=== PATIENT | male | born 1960 | race Caucasian/White ===

== ENCOUNTER 2016-06-19 17:14 | Emergency (ER) | payer BC, MEDICAID ==
[~2016-06-19] VITALS: Ht 182.9 cm; Wt 117.9 kg
[~2016-06-19 17:14] MED LIST: ASP81TEC PO; CANA100T PO; CEFD300C3 PO; CEFT1FRO2 IV; CIPR250T3 PO; CLAR-19; CLIN300C3 PO; DAPT500V2 IV; DOXY-182 PO; DOXY100T19 PO; DXCC100CRX PO; FURO-125 PO; FURO20TA4 PO; GLIM4TAB PO; GLIM4TAB56 PO; HUM100VI SQ; HUM100VI15 SQ; HUM100VI4 SC; HUM100VI6 SQ; HYDR-3583 PO; HYDR-3812 PO; IBUP-1773 PO; INSU100I11 SQ; INSU300I SQ; K DUR PO; LISI10TA PO; LISI10TA2 PO; LISI20TA2 PO; LISI5TAB PO; METF-380 PO; METF1000 PO; METO25TA2 PO; METR500T21 PO; SIMV40TA4 PO; SULF-222 PO; SULF1TAB38 PO; TRAM50TA2 PO; VANC1.5P9 IV
--- OUTSIDE RECORDS SUMMARY | 2016-06-19 17:19 | XMS REPORT | Continuity of Care Document ---
Author Author [facility] Organization [facility] Address Unknown Phone Unavailable Care Team Providers Care Wire Web Worker Name Role Phone OSITO YOUNG DO PCP Insurance Providers Payer Name Policy Number Subscriber Name Relationship [facility] [id number] Osito Ahn 17 Self / Same As Patient Advance Directives Directive Response Recorded Date/Time Advance Directives No 05/06/16 9:43pm Health Care Power of Dietary Director No 05/06/16 9:43pm Organ Donor No 05/06/16 [...] - 99.5) 05/08/2016 12:00pm Temperature (Calculated Celsius) 36.23054 degrees C (36.4 - 37.5) 05/08/2016 12:00pm [...] 3.00 inches 05/06/2016 9:47pm Height (Calculated Centimeters) 190.076443 cm 05/06/2016 9:47pm Weight (Pounds) 237 pounds 05/06/2016 9:47pm Weight (Ounces) 0.0 oz 05/06/2016 9:47pm Weight (Calculated Grams) 367308.39 gm 05/06/2016 9:47pm Weight (Calculated Kilograms) 107.284010 kilograms 05/06/2016 9:47pm Calculated BMI 29.6 05/06/2016 [...] 04/24/2016 3:02pm 04/29/2016 10:02am STAPH, COAG NEG (MINESWEEPING OFFICER) 04/24/2016 3:02pm 04/29/2016 10:02am Anaerobic Culture Tissue, Toe No anaerobes isolated 05/01/2016 4:00pm 05/04 9:42am Wound Culture Tissue, Toe PROTEUS MIRABILIS 05/01/2016 4:00pm 05/03/2016 8: 57am STREP AGALACTIAE GROUP B 05/01/2016 4:00pm 05/03/2016 8:57am Pending Microbiology Results Procedure Source Collection Date/Time Procedures No known history of procedures. Encounters Encounter Location Arrival/Admit Date Discharge/Depart Date Attending Provider Discharged Inpatient [facility] 05/06/16 5:37pm 1:45pm LUIS CHUNG MD Registered Recurring [facility] 05/01/16 2:26pm AMANDA LOREDO APRN Registered Clinic [facility] 04/24/16 3:31pm OSITO YOUNG DO Recent Diagnosis Diabetes mellitus Osteomyelitis
[2016-06-19 17:28] LABS: BASOPHILS # (AUTO) 0.1 10^3/uL (0.0-0.1); BASOPHILS % (AUTO) 1 % (0-10); EOSINOPHILS # (AUTO) 0.1 10^3/uL (0.0-0.3); EOSINOPHILS % (AUTO) 2 % (0-10); LYMPHOCYTES # (AUTO) 1.4 X 10^3 (1.0-4.0); LYMPHOCYTES % (AUTO) 18 % (12-44); MEAN CORPUSCULAR HEMOGLOBIN 29 PG (25-34); MEAN CORPUSCULAR HGB CONC 33 G/DL (32-36); MEAN CORPUSCULAR VOLUME 87 FL (80-99); MEAN PLATELET VOLUME 9.3 FL (7.4-10.4); MONOCYTES # (AUTO) 0.8 X 10^3 (0.0-1.0); MONOCYTES % (AUTO) 10 % (0-12); NEUTROPHILS # (AUTO) 5.3 X 10^3 (1.8-7.8); NEUTROPHILS % (AUTO) 70 % (42-75); PLATELET COUNT 264 10^3/uL (130-400); RED CELL DISTRIBUTION WIDTH 13.7 % (10.0-14.5); WHITE BLOOD COUNT 7.6 10^3/uL (4.3-11.0)
--- NOTE | 2016-06-19 17:30 | ED Respiratory ---
General Chief Complaint: Respiratory Problems Stated Complaint: SOA Nursing Triage Note: PT CO OF SOA, PT STATES DID NOT SLEEP GOOD LAST PM, PT HAS PICC LINE IN L AC FOR IV THERAPY FOR INFECTION IN L FOOT Source: patient, family Exam Limitations: no limitations History of Present Illness Time seen by provider: 17:18 Initial Comments Patient presents to the ED with c/o SOA which has progressively gotten worse this evening. Patient was seen as an outpatient earlier today at [facility] for IV antibiotics for cellulitis of the foot. Patient denies cough, congestion, chest pain, fever, abd pain, N/V/D. Patient recently underwent echocardiogram on 06/12 with findings of LVH 40-45 percent, mild diastolic dysfunction, moderate pulmonary hypertension, and a dilated IVC suggestive of increased right atrial pressure. Lexiscan stress test was performed at [place] in [place] with nonspecific ST-T changes. Patient is seeing Dr. Cheng at [place]. Timing/Duration: getting worse, other (chronic shortness of air, worsening yesterday) Prior Episodes/Possible Cause: frequent episodes Modifying Factors: Worse With Other (denies modifying factors) Allergies and Home Medications Allergies Coded Allergies: doxycycline (Verified Allergy, Severe, RASH/SWELLING, 06/12/16) Home Medications #60 10 PO DAILY Prescribed by: SOLEDAD MULLEN on 06/13/16 1118 Aspirin 81 Mg Tabec 81 MG PO DAILY (Reported) Ceftriaxone Na/Dextrose,Iso 1 Gm/50 Ml Froz.piggy 56Days 1 GM IV DAILY Prescribed by: AMARILYS AMBROSIO on 05/17/16 1040 Daptomycin 500 Mg Vial #56 600 MG IV DAILY Prescribed by: AMARILYS AMBROSIO on 05/17/16 1142 Furosemide 20 Mg Tablet #30 20 MG PO DAILY Prescribed by: SOLEDAD MULLEN on 06/13/16 1118 Glimepiride 4 Mg Tablet 8 MG PO DAILY (Reported) TAKES 2 (4MG) TABLETS Insulin Glargine,Hum.rec.anlog 300 Unit/1 Ml Insuln.pen 30Days 40 UNIT SQ HS Prescribed by: ALEX CHERRY on 06/13/16 1308 Insulin Glulisine 100 Unit/1 Ml Insuln.pen 30Days 15 UNIT SQ AC Prescribed by: ALEX CHERRY on 06/13/16 1308 Lisinopril 10 Mg Tablet 10 MG PO DAILY@1700 (Reported) Metformin HCl 1,000 Mg Tablet 1,000 MG PO BIDPC (Reported) Constitutional: No chills, No diaphoresis, No dizziness, No fever, No malaise, No weakness EENTM: no symptoms reported Respiratory: No cough, No dyspnea on exertion, No hemoptysis, No orthopnea, No phlegm, short of breath (constant)No stridor, wheezing Cardiovascular: see HPINo chest pain, edema (chronic edema) Hx of InterventionNo palpitations, No syncope Gastrointestinal: no symptoms reported Genitourinary: no symptoms reported Musculoskeletal: no symptoms reported Skin: no symptoms reported Psychiatric/Neurological: No Symptoms Reported All Other Systems Reviewed Negative Unless Noted: Yes (Negative excepted noted.) Past Efwitey-Uuzqsr-Lvsrfg Hx Patient Social History Alcohol Use: Denies Use Recreational Drug Use: No Smoking Status: Never a Smoker Recent Foreign Travel: No Contact w/Someone Who Travel: No Recent Infectious Disease Expo: No Recent Hopitalizations: Yes (WOUND CARE, [facility]) Physical Abuse Screen: No Sexual Abuse: No Immunizations Up To Date Tetanus Booster (TDap): Less than 5yrs Date of Pneumonia Vaccine: Dec 17, 2012 Date of Influenza Vaccine: May 05, 2016 Seasonal Allergies Seasonal Allergies: No Surgeries HX Surgeries: Yes (SKIN GRAFT TO RIGHT LEG FOLLOWING RILEY YEARS AGO) Surgeries: CABG Respiratory Hx Respiratory Disorders: No Cardiovascular Hx Cardiac Disorders: Yes (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, partial amputation left foot) Cardiac Disorders: Coronary Artery Disease, High Cholesterol, Hypertension Neurological Hx Neurological Disorders: Yes Neurological Disorders: Neuropathy Reproductive System Hx Reproductive Disorders: No Sexually Transmitted Disease: No HIV/AIDS: No Genitourinary Hx Genitourinary Disorders: Yes Genitourinary Disorders: Kidney Stones Gastrointestinal Hx Gastrointestinal Disorders: No Musculoskeletal Hx Musculoskeletal Disorders: Yes (OSTEOMYELITIS LEFT GREAT TOE) Endocrine Hx Endocrine Disorders: Yes Endocrine Disorders: Diabetes, Insulin dep HEENT HX ENT Disorders: No Loss of Vision: Denies Hearing Impairment: Denies Cancer Hx Cancer: No Psychosocial Hx Psychiatric Problems: No Integumentary HX Skin/Integumentary Disorder: Yes Skin/Integumentary Disorders: Recent Skin Changes Blood Transfusions Hx Blood Disorders: No Adverse Reaction to a Blood Tr: No Reviewed Nursing Assessment Reviewed/Agree w Nursing PMH: Yes Family Medical History Significant Family History: Heart Disease, Hypertension Family Medial History: CONGESTIVE HEARTFAILURE 19 FATHER Physical Exam Vital Signs Capillary Refill : Less Than 3 Seconds General Appearance: WD/WN no apparent distress HEENT: PERRL/EOMI pharynx normal Neck: non-tender supple normal inspection Respiratory: chest non-tender lungs clear normal breath sounds no respiratory distress Cardiovascular: normal peripheral pulses regular rate, rhythm no murmur Gastrointestinal: normal bowel sounds non tender softNo distended Extremities: no calf tenderness normal capillary refill pedal edema (2+ bilaterally) Neurologic/Psychiatric: alert normal mood/affect oriented x 3 Skin: normal color warm/dry Progress/Results/Core Measures Results/Orders Lab Results Laboratory Tests Test 06/19/16 17:20 Range/Units Alanine Aminotransferase (ALT/SGPT) 24 0-55 U/L Albumin 4.0 3.2-4.5 G/DL Alkaline Phosphatase 61 40-136 U/L Anion Gap 11 5-14 MMOL/L Aspartate Amino Transf (AST/SGOT) 20 5-34 U/L B-Type Natriuretic Peptide 355.3 H <100.0 PG/ML BUN/Creatinine Ratio 21 Basophils # (Auto) 0.1 0.0-0.1 10^3/uL Basophils (%) (Auto) 1 0-10 % Blood Urea Nitrogen 23 H 7-18 MG/DL C-Reactive Protein High Sensitivity 0.29 0.00-0.50 MG/DL Calcium Level 9.0 8.5-10.1 MG/DL Carbon Dioxide Level 26 21-32 MMOL/L Chloride Level 102 98-107 MMOL/L Creatinine 1.10 0.60-1.30 MG/DL Eosinophils # (Auto) 0.1 0.0-0.3 10^3/uL Eosinophils (%) (Auto) 2 0-10 % Estimat Glomerular Filtration Rate > 60 Glucose Level 106 H 70-105 MG/DL Hematocrit 34 L 40-54 % Hemoglobin 11.3 L 13.3-17.7 G/DL Lymphocytes # (Auto) 1.4 1.0-4.0 X 10^3 Lymphocytes (%) (Auto) 18 12-44 % Magnesium Level 2.0 1.8-2.4 MG/DL Mean Corpuscular Hemoglobin 29 25-34 PG Mean Corpuscular Hemoglobin Concent 33 32-36 G/DL Mean Corpuscular Volume 87 80-99 FL Mean Platelet Volume 9.3 7.4-10.4 FL Monocytes # (Auto) 0.8 0.0-1.0 X 10^3 Monocytes (%) (Auto) 10 0-12 % Neutrophils # (Auto) 5.3 1.8-7.8 X 10^3 Neutrophils (%) (Auto) 70 42-75 % Platelet Count 264 130-400 10^3/uL Potassium Level 4.0 3.6-5.0 MMOL/L Red Blood Count 3.90 L 4.35-5.85 10^6/uL Red Cell Distribution Width 13.7 10.0-14.5 % Sodium Level 139 135-145 MMOL/L Total Bilirubin 0.5 0.1-1.0 MG/DL Total Protein 6.8 6.4-8.2 G/DL Troponin I < 0.30 <0.30 NG/ML White Blood Count 7.6 4.3-11.0 10^3/uL My Orders Orders-DIONNE BEDOLLA Albuterol/Ipra Inhalation Soln (Duoneb I (06/19/16 18:45) Furosemide Injection (Lasix Injection) (06/19/16 18:33) Svn Sm Volume Nebulizer Rt-Rfs (06/19/16 18:33) Iv Infusion <= First Hr Ed (06/19/16 ) Vital Signs/I&O Blood Pressure Mean: 102 ECG Initial ECG Impression Date: Jun 19, 2016 Initial ECG Impression Time: 17:23 Initial ECG Rate: 84 Initial ECG Rhythm: Normal Sinus Initial ECG Comparisson: Unchanged Comment sinus rhythm. No STEMI or arrhythmia noted. ECG reviewed and discussed with Dr. Jorge Lopez. Diagnostic Imaging Diagonstic Imaging: Xray Plain Films/CT/US/NM/MRI: chest Comments FINDINGS: Two views of the chest are obtained. Right PICC line is stable in position. Postoperative changes are again seen in the mediastinum and left hilum. Heart size is upper limits of normal for technique. Heart size and pulmonary vasculature appear stable. There may be trace effusions bilaterally. There is some increase in the interstitial markings throughout both lungs which appears improved from the prior study. No new focal pneumonia is suspected. IMPRESSION: Persistent mild interstitial changes throughout both lungs which appear slightly improved from the prior study. There may be trace bilateral pleural effusions. No significant new abnormality is seen when compared to the recent prior exam. Dictated by: Dictated on workstation # [id number] Reviewed: Reviewed by Me (radiology report reviewed by me) Departure Communication Progress Notes all laboratory and diagnostic findings discussed with the patient. Plan for discharge to home with increasing evening Lasix to 40 mg by mouth for 3 days followed by resuming usual dose. Patient instructed to follow-up with Dr. Cheng and Dr. Young for a recheck. He is to call for appointment time. Return precautions were discussed with the patient as described in the discharge instructions of this report. Patient voices understanding and agrees with the treatment plan. Patient case discussed with Dr. Lopez, he agrees with the plan of care. Impression Impression: Primary Impression: Chronic congestive heart failure Qualified Code: I50.9 - Heart failure, unspecified Disposition: HOME, SELF-CARE Condition: Improved Departure-Patient Inst. Decision time for Depature: 18:57 Referrals: VITO YOUNG DO (PCP/Family) Primary Care Physician Patient Instructions: CHF Add. Discharge Instructions: All discharge instructions reviewed with patient and/or family. Voiced understanding. Increase Lasix to 40 mg by mouth in the evening for 3 days, then resume usual dosing. Continue all other current meds. Elevate the lower extremities. Follow-up with Dr. Cheng and your family physician for recheck this week. Return to the emergency department for worsened shortness of air, chest pain, dizziness, fever, vomiting, abdominal pain, or any other concerns. DIONNE BEDOLLA Jun 19, 2016 17:30
[2016-06-19 17:47] LABS: ALANINE AMINOTRANSFERASE 24 U/L (0-55); ANION GAP 11 MMOL/L (5-14); ASPARTATE AMINO TRANSFERASE 20 U/L (5-34); BILIRUBIN,TOTAL 0.5 MG/DL (0.1-1.0); BLOOD UREA NITROGEN 23 MG/DL (7-18); BUN/CREATININE RATIO 21; CARBON DIOXIDE 26 MMOL/L (21-32); CHLORIDE 102 MMOL/L (98-107); GFR ESTIMATED > 60; GLUCOSE 106 MG/DL (70-105); SODIUM 139 MMOL/L (135-145); TOTAL PROTEIN 6.8 G/DL (6.4-8.2); hs C REACTIVE PROTEIN 0.29 MG/DL (0.00-0.50)
[2016-06-19 17:53] LABS: TROPONIN I < 0.30 NG/ML (<0.30)
--- NOTE | 2016-06-19 18:06 | Diagnostic Imaging Report ---
INDICATION: Shortness of breath. COMPARISON: 06/16/2016. FINDINGS: Two views of the chest are obtained. Right PICC line is stable in position. Postoperative changes are again seen in the mediastinum and left hilum. Heart size is upper limits of normal for technique. Heart size and pulmonary vasculature appear stable. There may be trace effusions bilaterally. There is some increase in the interstitial markings throughout both lungs which appears improved from the prior study. No new focal pneumonia is suspected. IMPRESSION: Persistent mild interstitial changes throughout both lungs which appear slightly improved from the prior study. There may be trace bilateral pleural effusions. No significant new abnormality is seen when compared to the recent prior exam. Dictated by: Dictated on workstation # [id number]
[2016-06-19] MEDS ORDERED: FUROSEMIDE 40 MG/4 ML INJ (LASIX) IV STA (18:33)
[2016-06-19] MEDS ORDERED: RT-ALBUTEROL/IPRATROPIUM 3 ML (DUONEB) VIAL INH ONE (18:45)
[2016-06-19 19:47] VITALS: BP 150/78
== END 2016-06-19 19:47 | disposition home or self-care (01) ==
LOC: EDUNIT# 17:14 → ER 17:15
DX: I50.9 Heart failure, unspecified (principal); I10 Essential (primary) hypertension; E11.9 Type 2 diabetes mellitus without complications; Z79.84 Long term (current) use of oral hypoglycemic drugs; Z79.4 Long term (current) use of insulin; Z79.899 Other long term (current) drug therapy; Z95.1 Presence of aortocoronary bypass graft
CPT/HCPCS: 36415; 71020; 80053; 83735; 83880; 84484; 85025; 86141; 93005; 93041; 94640; 96365

== ENCOUNTER 2016-07-03 11:47 | Emergency (ER) | payer BC, MEDICAID ==
[~2016-07-03] VITALS: Ht 167.6 cm; Wt 104.3 kg
[2016-07-03] MEDS ORDERED: DEXTROSE 50% 50 ML (IMS) SYR ONE (11:50)
--- OUTSIDE RECORDS SUMMARY | 2016-07-03 11:51 | XMS REPORT | Continuity of Care Document ---
Author Author [facility] Organization [facility] Address Unknown Phone Unavailable Care Team Providers Care Restorative Care Technician Name Role Phone OSITO YOUNG DO PCP Insurance Providers Payer Name Policy Number Subscriber Name Relationship [facility] [id number] Osito Ahn 17 Self / Same As Patient Advance Directives Directive Response Recorded Date/Time Advance Directives No 05/06/16 9:43pm Health Care Power of Ship Laborer No 05/06/16 9:43pm Organ Donor No 05/06/16 [...] - 99.5) 05/08/2016 12:00pm Temperature (Calculated Celsius) 36.07307 degrees C (36.4 - 37.5) 05/08/2016 12:00pm [...] 3.00 inches 05/06/2016 9:47pm Height (Calculated Centimeters) 190.056300 cm 05/06/2016 9:47pm Weight (Pounds) 237 pounds 05/06/2016 9:47pm Weight (Ounces) 0.0 oz 05/06/2016 9:47pm Weight (Calculated Grams) 893178.39 gm 05/06/2016 9:47pm Weight (Calculated Kilograms) 107.300679 kilograms 05/06/2016 9:47pm Calculated BMI 29.6 05/06/2016 [...] 04/24/2016 3:02pm 04/29/2016 10:02am STAPH, COAG NEG (ASSOCIATE MUSIC PROFESSOR) 04/24/2016 3:02pm 04/29/2016 10:02am Anaerobic Culture Tissue, Toe No anaerobes isolated 05/01/2016 4:00pm 05/04 9:42am Wound Culture Tissue, Toe PROTEUS MIRABILIS 05/01/2016 4:00pm 05/03/2016 8: 57am STREP AGALACTIAE GROUP B 05/01/2016 4:00pm 05/03/2016 8:57am Pending Microbiology Results Procedure Source Collection Date/Time Procedures No known history of procedures. Encounters Encounter Location Arrival/Admit Date Discharge/Depart Date Attending Provider Discharged Inpatient [facility] 05/06/16 5:37pm 1:45pm LUIS CHUNG MD Registered Recurring [facility] 05/01/16 2:26pm AMANDA LOREDO APRN Registered Clinic [facility] 04/24/16 3:31pm OSITO YOUNG DO Recent Diagnosis Diabetes mellitus Osteomyelitis
[2016-07-03] MEDS ORDERED: DEXTROSE 50% 50 ML (IMS) SYR IV ONE ×2 (12:00→12:45)
--- NOTE | 2016-07-03 12:49 | ED General ---
General Chief Complaint: Glucose Problems Stated Complaint: LOW BLOOD SUGAR Nursing Triage Note: PT BROUGHT IN BY [facility] AFTER BEING FOUND AT HOME UNRESPONSIVE. PT WAS REPORTEDLY DIAPHORETIC AND CLAMMY AND BLOOD GLUCOSE WAS FOUND TO BE 20. 1 AMP D50 WAS GIVEN IVP PER EMS AND PT BECAME RESPONSIVE. UPON ARRIVAL TO ED, PT IS A&O X 4. HE REPORTS FLU LIKE SYMPTOMS OVER THE LAST COUPLE OF DAYS. BLOOD GLUCOSE CHECKED BY THIS RN AND FOUND TO BE 42. NEERU BILLINGS NOTIFIED. Nursing Sepsis Screen: No Definite Risk Source of Information: Patient, Family (sister) Exam Limitations: No Limitations History of Present Illness Time Seen by Provider: 12:30 Initial Comments Patient presents to the emergency department via [facility] after being found at home unresponsive. Patient was apparently diaphoretic, clammy with a blood sugar of 20. Patient was given 1 amp of D50 with patient becoming unresponsive soon after. Upon arrival to the ED patient was noted to have a blood sugar of 42. Patient and sister report patient has a lengthy history for hypoglycemia. Patient is currently undergoing IV antibiotic therapy for osteomyelitis. Timing/Duration: 1/2 Hour, Other (improving) Modifying Factors: improves with Medication (improved with D50) Allergies and Home Medications Allergies Coded Allergies: doxycycline (Verified Allergy, Severe, RASH/SWELLING, 06/12/16) Home Medications #60 10 PO DAILY Prescribed by: SOLEDAD MULLEN on 06/13/16 1118 Aspirin 81 Mg Tabec 81 MG PO DAILY (Reported) Ceftriaxone Na/Dextrose,Iso 1 Gm/50 Ml Froz.piggy 56Days 1 GM IV DAILY Prescribed by: AMARILYS AMBROSIO on 05/17/16 1040 Daptomycin 500 Mg Vial #56 600 MG IV DAILY Prescribed by: AMARILYS AMBROSIO on 05/17/16 1142 Furosemide 20 Mg Tablet #30 20 MG PO DAILY Prescribed by: SOLEDAD MULLEN on 06/13/16 1118 Glimepiride 4 Mg Tablet 8 MG PO DAILY (Reported) TAKES 2 (4MG) TABLETS Insulin Glargine,Hum.rec.anlog 300 Unit/1 Ml Insuln.pen 30Days 40 UNIT SQ HS Prescribed by: ALEX CHERRY on 06/13/16 1308 Insulin Glulisine 100 Unit/1 Ml Insuln.pen 30Days 15 UNIT SQ AC Prescribed by: ALEX CHERRY on 06/13/16 1308 Lisinopril 10 Mg Tablet 10 MG PO DAILY@1700 (Reported) Metformin HCl 1,000 Mg Tablet 1,000 MG PO BIDPC (Reported) Constitutional: see HPINo chills, diaphoresis (resolved completely prior to arrival)No dizziness, No fever, No malaise, No weakness EENTM: no symptoms reported Respiratory: No cough, No dyspnea on exertion, No orthopnea, No short of breath Cardiovascular: No chest pain, No palpitations Gastrointestinal: no symptoms reported Genitourinary: no symptoms reported Musculoskeletal: no symptoms reported Skin: no symptoms reported Psychiatric/Neurological: See HPIDenies Headache, Denies Numbness, Denies Paresthesia, Denies Seizure, Denies Tingling, Denies Weakness All Other Systems Reviewed Negative Unless Noted: Yes (Negative excepted noted.) Past Ikzozjx-Scudye-Qrcciy Hx Patient Social History Alcohol Use: Denies Use Recreational Drug Use: No Smoking Status: Never a Smoker Recent Foreign Travel: No Contact w/Someone Who Travel: No Recent Infectious Disease Expo: No Recent Hopitalizations: Yes ([facility], [facility]) Physical Abuse Screen: No Sexual Abuse: No Immunizations Up To Date Tetanus Booster (TDap): Less than 5yrs Date of Pneumonia Vaccine: Dec 17, 2012 Date of Influenza Vaccine: May 05, 2016 Seasonal Allergies Seasonal Allergies: No Surgeries HX Surgeries: Yes (SKIN GRAFT TO RIGHT LEG FOLLOWING RILEY YEARS AGO) Surgeries: CABG Respiratory Hx Respiratory Disorders: No Cardiovascular Hx Cardiac Disorders: Yes (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, partial amputation left foot) Cardiac Disorders: Coronary Artery Disease, High Cholesterol, Hypertension Neurological Hx Neurological Disorders: Yes Neurological Disorders: Neuropathy Reproductive System Hx Reproductive Disorders: No Sexually Transmitted Disease: No HIV/AIDS: No Genitourinary Hx Genitourinary Disorders: Yes Genitourinary Disorders: Kidney Stones Gastrointestinal Hx Gastrointestinal Disorders: No Musculoskeletal Hx Musculoskeletal Disorders: Yes (OSTEOMYELITIS LEFT GREAT TOE) Endocrine Hx Endocrine Disorders: Yes Endocrine Disorders: Diabetes, Insulin dep ((with frequent hypoglycemic episodes)) HEENT HX ENT Disorders: No Loss of Vision: Denies Hearing Impairment: Denies Cancer Hx Cancer: No Psychosocial Hx Psychiatric Problems: No Integumentary HX Skin/Integumentary Disorder: Yes Skin/Integumentary Disorders: Recent Skin Changes Blood Transfusions Hx Blood Disorders: No Adverse Reaction to a Blood Tr: No Reviewed Nursing Assessment Reviewed/Agree w Nursing PMH: Yes Family Medical History Significant Family History: Heart Disease, Hypertension Family Medial History: CONGESTIVE HEARTFAILURE 19 FATHER Physical Exam Vital Signs Capillary Refill : Less Than 3 Seconds General Appearance: No Apparent Distress WD/WN HEENT: PERRL/EOMI Pharynx Normal Other (normocephalic, atraumatic) Neck: Full Range of Motion Normal Inspection Non Tender Supple Respiratory: Lungs Clear Normal Breath Sounds No Respiratory Distress Cardiovascular: Regular Rate, Rhythm No Murmur Gastrointestinal: Normal Bowel Sounds Non Tender SoftNo Distended Back: Normal Inspection Extremity: Normal Capillary Refill Non Tender Neurologic/Psychiatric: Alert Oriented x3 No Motor/Sensory Deficits Normal Mood/Affect rock duster II-XII Norm as Tested Skin: Normal Color Warm/Dry Progress/Results/Core Measures Results/Orders Lab Results My Orders Orders-DIONNE BEDOLLA Iv Push Sister [facility] Ed (07/03/16 ) Medications Given in ED Vital Signs/I&O Blood Pressure Mean: 112 Point of Care Testing Finger Stick Blood Glucose: 44 Blood Glucose Action Taken: DR NOTIFIED Departure Communication Progress Notes Patient seen and evaluated. Patient was given 2 doses of D50 in the emergency department with blood sugars rising from 42-44-90 respectively. Patient was given a lunch tray and jesse crackers with peanut butter. Patient reports feeling much better after medications and eating. Patient is alert and oriented 3, no acute distress. Proceed with discharge to home with follow-up as an outpatient with Dr. Mehta. Patient instructed to decrease his regular insulin to 15 units before meals. Patient states he has an appointment tomorrow with Dr. Mehta for recheck of his medications. Patient instructed to keep this appointment. All return precautions were discussed with the patient as described in the discharge instructions of this report. Patient voices understanding and agrees with the treatment plan. Patient case discussed with Dr. Oden, he agrees with the plan of care. Impression Impression: Primary Impression: Hypoglycemia associated with diabetes Disposition: 01 HOME, SELF-CARE Condition: Improved Departure-Patient Inst. Decision time for Depature: 13:25 Referrals: VITO MEHTA DO (PCP/Family) Primary Care Physician Patient Instructions: HYPOGLYCEMIA Add. Discharge Instructions: All discharge instructions reviewed with patient and/or family. Voiced understanding. Decrease regular insulin to 15 units subcutaneous 30 minutes before meals. Continue all other home medications. Monitor blood sugars closely. Follow-up with your primary care physician for recheck tomorrow as previously scheduled. Return to the emergency department for low blood sugar, confusion, headache, dizziness, changes in vision, or any other concerns. DIONNE BEDOLLA Jul 03, 2016 12:49 Hypoglycemia associated with diabetes Disposition: 01 HOME, SELF-CARE Condition: Improved Departure-Patient Inst. Decision time for Depature: 13:25 Referrals: VITO MEHTA DO (PCP/Family) Primary Care Physician Patient Instructions: HYPOGLYCEMIA Add. Discharge Instructions: All discharge instructions reviewed with patient and/or family. Voiced understanding. Decrease regular insulin to 15 units subcutaneous 30 minutes before meals. Continue all other home medications. Monitor blood sugars closely. Follow-up with your primary care physician for recheck tomorrow as previously scheduled. Return to the emergency department for low blood sugar, confusion, headache, dizziness, changes in vision, or any other concerns. DIONNE BEDOLLA Jul 03, 2016 12:49
[2016-07-03 14:09] VITALS: BP 147/95
== END 2016-07-03 14:09 | disposition home or self-care (01) ==
LOC: EDUNIT# 11:47 → ER 11:48
DX: E11.649 Type 2 diabetes mellitus with hypoglycemia without coma (principal); I10 Essential (primary) hypertension; Z79.4 Long term (current) use of insulin; Z79.84 Long term (current) use of oral hypoglycemic drugs; Z79.899 Other long term (current) drug therapy
CPT/HCPCS: 82962; 96374; 96376

== ENCOUNTER 2016-07-10 19:38 | Emergency (ER) | payer BC, MEDICAID ==
[~2016-07-10] VITALS: Ht 167.6 cm; Wt 104.3 kg
--- OUTSIDE RECORDS SUMMARY | 2016-07-10 19:44 | XMS REPORT | Continuity of Care Document ---
Author Author [facility] Organization [facility] Address Unknown Phone Unavailable Care Team Providers Care Saddle Mechanic Name Role Phone OSITO YOUNG DO PCP Insurance Providers Payer Name Policy Number Subscriber Name Relationship [facility] [id number] Osito Ahn 17 Self / Same As Patient Advance Directives Directive Response Recorded Date/Time Advance Directives No 05/06/16 9:43pm Health Care Power of Store Group Manager No 05/06/16 9:43pm Organ Donor No 05/06/16 [...] - 99.5) 05/08/2016 12:00pm Temperature (Calculated Celsius) 36.09864 degrees C (36.4 - 37.5) 05/08/2016 12:00pm [...] 3.00 inches 05/06/2016 9:47pm Height (Calculated Centimeters) 190.229340 cm 05/06/2016 9:47pm Weight (Pounds) 237 pounds 05/06/2016 9:47pm Weight (Ounces) 0.0 oz 05/06/2016 9:47pm Weight (Calculated Grams) 871786.39 gm 05/06/2016 9:47pm Weight (Calculated Kilograms) 107.223450 kilograms 05/06/2016 9:47pm Calculated BMI 29.6 05/06/2016 [...] 04/24/2016 3:02pm 04/29/2016 10:02am STAPH, COAG NEG (ASSISTANT PARALEGAL) 04/24/2016 3:02pm 04/29/2016 10:02am Anaerobic Culture Tissue, Toe No anaerobes isolated 05/01/2016 4:00pm 05/04 9:42am Wound Culture Tissue, Toe PROTEUS MIRABILIS 05/01/2016 4:00pm 05/03/2016 8: 57am STREP AGALACTIAE GROUP B 05/01/2016 4:00pm 05/03/2016 8:57am Pending Microbiology Results Procedure Source Collection Date/Time Procedures No known history of procedures. Encounters Encounter Location Arrival/Admit Date Discharge/Depart Date Attending Provider Discharged Inpatient [facility] 05/06/16 5:37pm 1:45pm LUIS CHUNG MD Registered Recurring [facility] 05/01/16 2:26pm AMANDA LOREDO APRN Registered Clinic [facility] 04/24/16 3:31pm OSITO YOUNG DO Recent Diagnosis Diabetes mellitus Osteomyelitis
[2016-07-10 20:05] LABS: BASOPHILS % (AUTO) 0 % (0-10); EOSINOPHILS # (AUTO) 0.1 10^3/uL (0.0-0.3); EOSINOPHILS % (AUTO) 1 % (0-10); LYMPHOCYTES # (AUTO) 1.6 X 10^3 (1.0-4.0); LYMPHOCYTES % (AUTO) 20 % (12-44); MEAN CORPUSCULAR HEMOGLOBIN 28 PG (25-34); MEAN CORPUSCULAR HGB CONC 32 G/DL (32-36); MEAN CORPUSCULAR VOLUME 86 FL (80-99); MEAN PLATELET VOLUME 9.6 FL (7.4-10.4); MONOCYTES # (AUTO) 0.7 X 10^3 (0.0-1.0); MONOCYTES % (AUTO) 9 % (0-12); NEUTROPHILS # (AUTO) 5.9 X 10^3 (1.8-7.8); NEUTROPHILS % (AUTO) 71 % (42-75); PLATELET COUNT 286 10^3/uL (130-400); RED BLOOD COUNT 3.99 10^6/uL (4.35-5.85); RED CELL DISTRIBUTION WIDTH 14.2 % (10.0-14.5); WHITE BLOOD COUNT 8.4 10^3/uL (4.3-11.0)
--- NOTE | 2016-07-10 20:07 | ED Cardiac General ---
History of Present Illness General Chief Complaint: Cardiac/General Problems Stated Complaint: SOA/RACING HEART Nursing Triage Note: PT C/O PALPITATIONS AND DYSPNEA. HE STATES HE WAS SEEN BY HIS MANAGEMENT PROFESSOR AT [facility] TODAY. Source: patient Exam Limitations: no limitations History of Present Illness Time seen by provider: 19:41 Initial Comments Here with report of shortness of breath and palpitations today. Currently under therapy for osteomyelitis of the left great toe. Has had recent hospitalizations here and at [facility] for heart failure or chest pain concerns. He has had 2 other ER visits for chest pain concerns here as well. His mother reports that he had fluid around his heart that was found at [place] and they had to diurese him. He was also found to have A. fib and is currently on Xarelto which he started today. A. fib appears to be paroxysmal see has history of that in the past as well. Does have echocardiogram from 06/12/16 done here that shows mild mitral valve regurg and mild LV systolic dysfunction. EF is 40-45 percent. Also some mild diastolic dysfunction and moderate pulmonary hypertension noted. Timing/Duration: 4-6 hours, intermittent Severity: moderate Location: central, other (shortness of breath and palpitations) Activities at Onset: activity Prior CP/Workup: cardiac cath, cardiolye scan, echocardiography Modifying Factors: worse with exercise, improves with rest NTG SL SOCIAL SCIENCE TEACHER: Yes ASA po SOCIAL SCIENCE TEACHER: No Associated Systoms: No Chest Pain, No Fever/Chills, No Nausea/Vomiting, Shortness of Air Weakness Allergies and Home Medications Allergies Coded Allergies: doxycycline (Verified Allergy, Severe, RASH/SWELLING, 06/12/16) Home Medications #60 10 PO DAILY Prescribed by: SOLEDAD MULLEN on 06/13/16 1118 Aspirin 81 Mg Tabec 81 MG PO DAILY (Reported) Ceftriaxone Na/Dextrose,Iso 1 Gm/50 Ml Froz.piggy 56Days 1 GM IV DAILY Prescribed by: AMARILYS AMBROSIO on 05/17/16 1040 Daptomycin 500 Mg Vial #56 600 MG IV DAILY Prescribed by: AMARILYS AMBROSIO on 05/17/16 1142 Furosemide 20 Mg Tablet #30 20 MG PO DAILY Prescribed by: SOLEDAD MULLEN on 06/13/16 1118 Glimepiride 4 Mg Tablet 8 MG PO DAILY (Reported) TAKES 2 (4MG) TABLETS Insulin Glargine,Hum.rec.anlog 300 Unit/1 Ml Insuln.pen 30Days 40 UNIT SQ HS Prescribed by: ALEX CHERRY on 06/13/16 1308 Insulin Glulisine 100 Unit/1 Ml Insuln.pen 30Days 15 UNIT SQ AC Prescribed by: ALEX CHERRY on 06/13/16 1308 Lisinopril 10 Mg Tablet 10 MG PO DAILY@1700 (Reported) Metformin HCl 1,000 Mg Tablet 1,000 MG PO BIDPC (Reported) Review of Systems Constitutional: see HPINo chills, No fever EENTM: No Symptoms Reported Respiratory: See HPI SOA With ExertionDenies SOA at Rest Cardiovascular: Denies Chest Pain, Palpitations Gastrointestinal: No Symptoms Reported Genitourinary: No Symptoms Reported Musculoskeletal: no symptoms reported Skin: see HPI Psychiatric/Neurological: Anxiety (related to previous chest pain event) Denies Emotional Problems, Denies Headache, Denies Weakness Endocrine: No Symptoms Reported All Other Systems Reviewed Negative Unless Noted: Yes Past Umstrff-Yhdvbj-Idmbzp Hx Patient Social History Alcohol Use: Denies Use Recreational Drug Use: No Smoking Status: Never a Smoker Recent Foreign Travel: No Contact w/Someone Who Travel: No Recent Infectious Disease Expo: No Recent Hopitalizations: Yes (W[facility] CARE, [place]) Physical Abuse Screen: No Sexual Abuse: No Immunizations Up To Date Tetanus Booster (TDap): Less than 5yrs Date of Pneumonia Vaccine: Dec 17, 2012 Date of Influenza Vaccine: May 05, 2016 Seasonal Allergies Seasonal Allergies: No Surgeries HX Surgeries: Yes (SKIN GRAFT TO RIGHT LEG FOLLOWING RILEY YEARS AGO) Surgeries: CABG Respiratory Hx Respiratory Disorders: No Cardiovascular Hx Cardiac Disorders: Yes (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, partial amputation left foot) Cardiac Disorders: Coronary Artery Disease, High Cholesterol, Hypertension Neurological Hx Neurological Disorders: Yes Neurological Disorders: Neuropathy Reproductive System Hx Reproductive Disorders: No Sexually Transmitted Disease: No HIV/AIDS: No Genitourinary Hx Genitourinary Disorders: Yes Genitourinary Disorders: Kidney Stones Gastrointestinal Hx Gastrointestinal Disorders: No Musculoskeletal Hx Musculoskeletal Disorders: Yes (OSTEOMYELITIS LEFT GREAT TOE) Endocrine Hx Endocrine Disorders: Yes Endocrine Disorders: Diabetes, Insulin dep HEENT HX ENT Disorders: No Loss of Vision: Denies Hearing Impairment: Denies Cancer Hx Cancer: No Psychosocial Hx Psychiatric Problems: No Integumentary HX Skin/Integumentary Disorder: Yes Skin/Integumentary Disorders: Recent Skin Changes Blood Transfusions Hx Blood Disorders: No Adverse Reaction to a Blood Tr: No Reviewed Nursing Assessment Reviewed/Agree w Nursing PMH: Yes Family Medical History Significant Family History: Heart Disease, Hypertension Family Medial History: CONGESTIVE HEARTFAILURE 19 FATHER Physical Exam Vital Signs Vital Sign - Last 12Hours 07/10/16 19:38 Temp 98.6 Pulse 85 Resp 16 B/P 156/97 Pulse Ox 99 O2 Delivery Room Air Capillary Refill : Less Than 3 Seconds General Appearance: No Apparent Distress WD/WN HEENT: PERRL/EOMI Pharynx Normal Neck: Non Tender Supple Respiratory: Lungs Clear Normal Breath Sounds Cardiovascular: Systolic Murmur (greatest in the left lateral chest wall area ) Irregularly Irregular Gastrointestinal: Non Tender Soft Extremity: Normal Range of Motion Non Tender Pedal Edema (1+ edema to the mid tibia bilaterally) Neurologic/Psychiatric: Alert Oriented x3 Skin: Normal Color Warm/Dry Other (boot and dressing on left foot for known left great toe diabetic ulcer.) Progress/Results/Core Measures Results/Orders Lab Results Laboratory Tests Test 07/10/16 19:42 Range/Units Activated Partial Thromboplast Time 38 H 24-35 SEC Alanine Aminotransferase (ALT/SGPT) 36 0-55 U/L Albumin 3.7 3.2-4.5 G/DL Alkaline Phosphatase 65 40-136 U/L Anion Gap 11 5-14 MMOL/L Aspartate Amino Transf (AST/SGOT) 27 5-34 U/L B-Type Natriuretic Peptide 141.2 H <100.0 PG/ML BUN/Creatinine Ratio 19 Basophils # (Auto) 0.0 0.0-0.1 10^3/uL Basophils (%) (Auto) 0 0-10 % Blood Urea Nitrogen 28 H 7-18 MG/DL Calcium Level 9.0 8.5-10.1 MG/DL Carbon Dioxide Level 26 21-32 MMOL/L Chloride Level 102 98-107 MMOL/L Creatinine 1.47 H 0.60-1.30 MG/DL Eosinophils # (Auto) 0.1 0.0-0.3 10^3/uL Eosinophils (%) (Auto) 1 0-10 % Estimat Glomerular Filtration Rate 50 Glucose Level 145 H 70-105 MG/DL Hematocrit 34 L 40-54 % Hemoglobin 11.1 L 13.3-17.7 G/DL INR Comment 2.0 H 0.8-1.4 Lymphocytes # (Auto) 1.6 1.0-4.0 X 10^3 Lymphocytes (%) (Auto) 20 12-44 % Magnesium Level 1.6 L 1.8-2.4 MG/DL Mean Corpuscular Hemoglobin 28 25-34 PG Mean Corpuscular Hemoglobin Concent 32 32-36 G/DL Mean Corpuscular Volume 86 80-99 FL Mean Platelet Volume 9.6 7.4-10.4 FL Monocytes # (Auto) 0.7 0.0-1.0 X 10^3 Monocytes (%) (Auto) 9 0-12 % Myoglobin 55.7 10.0-92.0 NG/ML Neutrophils # (Auto) 5.9 1.8-7.8 X 10^3 Neutrophils (%) (Auto) 71 42-75 % Platelet Count 286 130-400 10^3/uL Potassium Level 4.6 3.6-5.0 MMOL/L Prothrombin Time 22.7 H 12.2-14.7 SEC Red Blood Count 3.99 L 4.35-5.85 10^6/uL Red Cell Distribution Width 14.2 10.0-14.5 % Sodium Level 139 135-145 MMOL/L Total Bilirubin 0.4 0.1-1.0 MG/DL Total Protein 6.4 6.4-8.2 G/DL Troponin I < 0.30 <0.30 NG/ML White Blood Count 8.4 4.3-11.0 10^3/uL My Orders Orders-BEATRICE PETERSON MD Cbc With Automated Diff (07/10/16 19:56) Magnesium (07/10/16 19:56) Chest 1 View, Ap/Pa Only (07/10/16 19:56) Ekg Tracing (07/10/16 19:56) Cardiac Profile 1 (07/10/16 19:56) Comprehensive Metabolic Panel (07/10/16 19:56) Myoglobin Serum (07/10/16 19:56) Protime With Inr (07/10/16 19:56) Partial Thromboplastin Time (07/10/16 19:56) O2 (07/10/16 19:56) Monitor-Rhythm Ecg Trace Only (07/10/16 19:56) Lipid Panel (07/11/16 06:00) Saline Lock/Iv-Start (07/10/16 19:56) BNP (07/10/16 19:56) Lasix 40 Mg Iv (07/10/16 21:14) Vital Signs/I&O Vital Sign - Last 12Hours 07/10/16 19:38 Temp 98.6 Pulse 85 Resp 16 B/P 156/97 Pulse Ox 99 O2 Delivery Room Air Blood Pressure Mean: 116 Progress Note : Progress Note Seen and evaluated. IV, labs, EKG and chest x-ray ordered. Records reviewed from previous visits. Monitor patient. 2109: Overall no significant findings. There is a question of some pulmonary congestion and he does have history of CHF. He recently had reduction of his Lasix to 40 mg from 80 mg. His weight was down approximately 20 pounds below what it is now although his weight now is what he typically is at per the mother. Given the mild edema of the legs and the pulmonary congestion, we will give 40 mg of Lasix IV now. He has a follow-up appointment with Dr. Mehta in the morning. We will defer medication changes to his primary care provider. Patient will see him tomorrow. This was discussed with the mother and the patient who both agree. Patient to also discuss blood thinner agents with Dr. Mehta. Currently on Xarelto which patient is going to have difficulty affording. Otherwise no admission criteria and patient is otherwise doing well. Discharged home with return precautions. Patient verbalize understanding instructions and agreement with plan. ECG Initial ECG Impression Date: Jul 10, 2016 Initial ECG Impression Time: 19:44 Initial ECG Rate: 79 Initial ECG Rhythm: A Fib/Flutter Comment Atrial flutter with rate of 79. Change from previous sinus rhythm of 06/19/16. No evidence of ST elevation CA. Interpreted by me. Departure Impression Impression: Primary Impression: Atrial fibrillation Qualified Code: I48.0 - Paroxysmal atrial fibrillation Additional Impression: CHF (congestive heart failure) Qualified Code: I50.42 - Chronic combined systolic (congestive) and diastolic (congestive) heart failure Disposition: 01 HOME, SELF-CARE Condition: Improved Departure-Patient Inst. Decision time for Depature: 21:19 Referrals: VITO MEHTA DO (PCP/Family) Primary Care Physician Patient Instructions: Atrial Fibrillation (DC), CHF Add. Discharge Instructions: All discharge instructions reviewed with patient and/or family. Voiced understanding. Keep your appointment with Dr. Mehta in the morning. Discussed with him about your Lasix dosing. Also discussed with him about your blood thinner medications due to the cost of the Xarelto. There may be less expensive options for you. Return for worse pain, fever, vomiting, weakness, breathing problems or other concerns as needed. Copy Copies To 1: VITO MEHTA TIMOTHY D MD Jul 10, 2016 20:07
[2016-07-10 20:11] LABS: PROTHROMBIN TIME PATIENT 22.7 SEC (12.2-14.7)
[2016-07-10 20:20] LABS: ALANINE AMINOTRANSFERASE 36 U/L (0-55); ALBUMIN 3.7 G/DL (3.2-4.5); ANION GAP 11 MMOL/L (5-14); ASPARTATE AMINO TRANSFERASE 27 U/L (5-34); BILIRUBIN,TOTAL 0.4 MG/DL (0.1-1.0); BLOOD UREA NITROGEN 28 MG/DL (7-18); BUN/CREATININE RATIO 19; CARBON DIOXIDE 26 MMOL/L (21-32); CHLORIDE 102 MMOL/L (98-107); CREATININE SERUM 1.47 MG/DL (0.60-1.30); GFR ESTIMATED 50; GLUCOSE 145 MG/DL (70-105); MAGNESIUM 1.6 MG/DL (1.8-2.4); POTASSIUM 4.6 MMOL/L (3.6-5.0); SODIUM 139 MMOL/L (135-145); TOTAL PROTEIN 6.4 G/DL (6.4-8.2)
[2016-07-10 20:26] LABS: MYOGLOBIN SERUM 55.7 NG/ML (10.0-92.0)
--- NOTE | 2016-07-10 20:54 | Diagnostic Imaging Report ---
INDICATION: Palpitations, dyspnea. EXAMINATION: Chest 07/10/2016 COMPARISON: 06/19/2016. FINDINGS: There is cardiomegaly and mild pulmonary vascular congestion. Mildly increased markings throughout both lungs noted. No focal consolidations or effusions. No pneumothorax. Right-sided PICC line is stable. There are sternotomy wires and mediastinal clips. IMPRESSION: Suspicion of mild pulmonary edema, correlate with symptoms. When patient is able, PA and lateral views may provide further characterization. Dictated by: Dictated on workstation # [id number]
[2016-07-10] MEDS ORDERED: FUROSEMIDE 40 MG/4 ML INJ (LASIX) IV STA (21:14)
[2016-07-10 21:42] VITALS: BP 146/97
== END 2016-07-10 21:43 | disposition home or self-care (01) ==
LOC: EDUNIT# 19:38 → ER 19:40
DX: I48.0 Paroxysmal atrial fibrillation (principal); I50.9 Heart failure, unspecified; I10 Essential (primary) hypertension; Z79.82 Long term (current) use of aspirin; Z79.01 Long term (current) use of anticoagulants
CPT/HCPCS: 36415; 71010; 80053; 83735; 83874; 83880; 84484; 85025; 85610; 85730; 93005; 93041; 96374

== ENCOUNTER 2016-07-13 12:10 | Outpatient (RCR) | payer BC, MEDICAID ==
--- OUTSIDE RECORDS SUMMARY | 2016-05-18 08:18 | XMS REPORT | Continuity of Care Document ---
Author Author [facility] Organization [facility] Address Unknown Phone Unavailable Care Team Providers Care Machine Finisher Name Role Phone OSITO YOUNG DO PCP Insurance Providers Payer Name Policy Number Subscriber Name Relationship [facility] [id number] Osito Ahn 17 Self / Same As Patient Advance Directives Directive Response Recorded Date/Time Advance Directives No 05/06/16 9:43pm Health Care Power of Agricultural Engineering Technologist No 05/06/16 9:43pm Organ Donor No 05/06/16 9:43pm Resuscitation Status Full Code 05/06/16 9:43pm Chief Complaint and Reason for Visit Chief Complaint OSTEOMYELITIS; CELLULITIS 2 DEG TO DIABETIC ULCER Reason for Visit Diabetes mellitus Osteomyelitis Problems Active Problems Medical Problem Onset Date Status CELLULITIS LEFT ELBOW Unknown Acute Cellulitis Unknown Acute Cellulitis Unknown Acute Diabetes mellitus Unknown Acute Osteomyelitis Unknown Acute Medications Current Home Medications Medication Dose Units Route Directions Days/Qty Instructions Start Date Aspirin 81 Mg 81 Mg Oral Daily 12/14/12 Lisinopril 10 Mg 10 Mg Oral Bedtime 05/07/16 Glimepiride 4 Mg 8 Mg Oral Daily TAKES 2 (4MG) TABLETS 05/07/16 Metformin Hcl 1,000 Mg 1,000 Mg Oral Twice Daily After Meals Insulin Nph Hum/Reg Insulin Hm 100 Unit/1 Ml 70 Unit Sub-Q Twice A Day 05/07/16 Cefdinir (Omnicef) 300 Mg 300 Mg Oral Twice A Day 30 05/08/16 Past Home Medications Medication Directions Ordered Status Metformin Hcl (Glucophage) 1,000 Mg Tablet, 1000 Mg Oral Twice A Day Discontinued Hum Insulin Nph/Reg Insulin Hm 10 Ml Vial, 70 Units Subcutaneously Bid Ac Meals 07/19/10 Discontinued Glimepiride 4 Mg Tablet, 8 Mg Oral Daily 07/19/10 Discontinued Lisinopril 20 Mg Tablet, 20 Mg Oral Daily In Evening 07/19/10 Discontinued Lisinopril 5 Mg Tablet, 5 Mg Oral Every Evening 12/14/12 Discontinued Metoprolol Tartrate (Lopressor) 25 Mg Tablet, 25 Mg Oral Daily 12/14/12 Discontinued Simvastatin 40 Mg Tablet, 40 Mg Oral Bedtime 12/14/12 Discontinued Doxycycline Hyclate 100 Mg Tab, 100 Mg Oral Bid@07,17 12/19/12 Discontinued Doxycycline Hyclate 100 Mg Tablet.dr, 100 Mg Oral Twice A Day 12/23/12 Discontinued Hum Insulin Nph/Reg Insulin Hm 10 Ml Vial, 50 Units Sub-Q Twice A Day Discontinued Lisinopril 10 Mg Tablet, 10 Mg Oral Daily 12/26/12 Discontinued Furosemide (Lasix) 20 Mg Tablet, 1 Each Oral Daily 12/26/12 Discontinued Trimethoprim/Sulfamethoxazole 1 Ea Tablet, 1 Ea Oral Twice A Day 04/10/13 Discontinued Tramadol Hcl 50 Mg Tablet, 50 Mg Oral Every 6 Hours 04/10/13 Discontinued Acetaminophen/Hydrocodone Bitart 1 Tab Tab, 1 Ea Oral Q4hr Prn 04/12/13 Discontinued Trimethoprim/Sulfamethoxazole 1 Ea Tablet, 1 Ea Oral Twice A Day 04/21/13 Discontinued Clarithromycin 500 Mg Tab, 11/30/14 Discontinued Clindamycin Hcl 300 Mg Capsule, 1 Each Oral Give Every 6 Hr On Schedule 11/30 Discontinued Clindamycin Hcl 300 Mg Capsule, 1 Each Oral Four Times Daily 11/30/14 Discontinued Ibuprofen (Motrin) 600 Mg Tablet, 600 Mg Oral Every 6 Hours 11/30/14 Discontinued Glimepiride 4 Mg Tablet, 8 Mg Oral Daily 09/29/15 Discontinued Canagliflozin 100 Mg Tablet, 100 Mg Oral Daily 09/29/15 Discontinued Hydrocodone/Acetaminophen 1 Each Tablet, 1 Each Oral Every 4HRS as needed for Pain 10/05/15 Discontinued Doxycycline Monohydrate 100 Mg Tablet, 100 Mg Oral Twice A Day 05/07/16 Discontinued Ciprofloxacin Hcl 250 Mg Tablet, 250 Mg Oral Twice A Day 05/07/16 Discontinued Social History Social History Problem Response Recorded Date/Time Alcohol Use Denies Use 10/05/2015 8:49am Recreational Drug Use No 10/05/2015 8:49am Recent Foreign Travel No 05/06/2016 9:47pm Recent Infectious Disease Exposure No 05/06/2016 9:47pm Hospitalization with Isolation Denies 05/08/2016 6:19pm Sexually Transmitted Disease No 05/06/2016 9:43pm HIV/AIDS No 05/06/2016 9:43pm Smoking Status Never a Smoker 05/06/2016 9:46pm Recent Hopitalizations Yes 05/06/2016 9:43pm Sexually Transmitted Disease No 05/06/2016 9:43pm Hospitalization with Isolation Denies 05/08/2016 6:19pm Query Response Start Date Stop Date Smoking Status Never a Smoker Hospital Discharge Instructions Patient Instructions Physician Instructions Plan of Care/Instructions/FU: Keep your foot elevated whenever possible. Keep wound clean and dry. Return to wound clinic as scheduled Medications as on the medication list Activity as Tolerated: Yes Goal: Continuing improvement in wound healing. Better control of blood sugars Discharge Diet: ADA Diet Return to [facility] For: Evidence of increasing swelling and redness suggesting infection Care Plan Patient Instructions:: Keep your foot elevated whenever possible. Keep wound clean and dry.Return to wound clinic as scheduledMedications as on the medication list Goal:: Continuing improvement in wound healing.Better control of blood sugars Plan of Care Discharge Date 05/08/16 1:45pm Disposition 01 HOME, SELF-CARE Instructions/Education Provided Wound Care (DC) Osteomyelitis (DC) Prescriptions See Medication Section Additional Instructions/Education WOUND CARE APPOINTMENT WITH AMANDA LOREDO AT 2:30 P.M. TUESDAY 05/15 -CLEANSE WOUND WITH NORMAL SALINE -FLUFF 4X4 GUAZE AND DAMPEN WITH DAKINS 1/4 SOLUTION AND PUT ON WOUND THEN APPLY 4X4 GUAZE SECONDARY DRESSING -APPLY ROLLING GUAZE THEN APPLY TAPE Care Plan and Goals See Discharge Instructions Section Functional Status Query Response Date Recorded Patient Orientation Person Place Time Situation May 08, 2016 6:19pm Comprehension Ability Understands Concepts May 08, 2016 9:00am Allergies, Adverse Reactions, Alerts Allergen Type Severity Reaction Status Last Updated Doxycycline Adverse Reaction Severe RASH/SWELLING Active 05/07/16 Immunizations Name Given Type FLU TRIvalent 5 years - Adult 05/07/16 Administered Vital Signs Acute Vital Signs Vital Response Date/Time Temperature (Fahrenheit) 97.5 degrees F (97.6 - 99.5) 05/08/2016 12:00pm Temperature (Calculated Celsius) 36.57589 degrees C (36.4 - 37.5) 05/08/2016 12:00pm Temperature Source Temporal 05/08/2016 12:00pm Pulse Rate (adult) 81 bpm (60 - 90) 05/08/2016 12:00pm Respiratory Rate 20 bpm (12 - 24) 05/08/2016 12:00pm O2 Sat by Pulse Oximetry 97 % (88 - 100) 05/08/2016 12:00pm Blood Pressure 139/85 mm Hg 05/08/2016 12:00pm Blood Pressure Mean 103 mm Hg 05/08/2016 12:00pm Pain Numeric Pain Scale 0-No Pain 05/08/2016 12:00pm Pain Numeric Pain Scale 0-No Pain 05/08/2016 12:00pm Height (Feet) 6 feet 05/06/2016 9:47pm Height (Inches) 3.00 inches 05/06/2016 9:47pm Height (Calculated Centimeters) 190.258064 cm 05/06/2016 9:47pm Weight (Pounds) 237 pounds 05/06/2016 9:47pm Weight (Ounces) 0.0 oz 05/06/2016 9:47pm Weight (Calculated Grams) 588605.39 gm 05/06/2016 9:47pm Weight (Calculated Kilograms) 107.664604 kilograms 05/06/2016 9:47pm Calculated BMI 29.6 05/06/2016 9:47pm Capillary Refill Capillary Refill Less Than 3 Seconds 05/06/2016 4:27pm Results Pending Laboratory Results Test Name Collection Date/Time Microbiology Results Procedure Source Result Collection Date/Time Result Date/Time Anaerobic Culture Tissue, Toe No anaerobes isolated 04/24/2016 3:02pm 04/26 9:09am Wound Culture Tissue, Toe GROUP B STREPTOCOCCI 04/24/2016 3:02pm 2015 10:02am PROTEUS MIRABILIS 04/24/2016 3:02pm 04/29/2016 10:02am STAPH, COAG NEG (TALENT COORDINATOR) 04/24/2016 3:02pm 04/29/2016 10:02am Anaerobic Culture Tissue, Toe No anaerobes isolated 05/01/2016 4:00pm 05/04 9:42am Wound Culture Tissue, Toe PROTEUS MIRABILIS 05/01/2016 4:00pm 05/03/2016 8: 57am STREP AGALACTIAE GROUP B 05/01/2016 4:00pm 05/03/2016 8:57am Pending Microbiology Results Procedure Source Collection Date/Time Procedures No known history of procedures. Encounters Encounter Location Arrival/Admit Date Discharge/Depart Date Attending Provider Discharged Inpatient [facility] 05/06/16 5:37pm 1:45pm LUIS CHUNG MD Registered Recurring [facility] 05/01/16 2:26pm AMANDA LOREDO APRN Registered Clinic [facility] 04/24/16 3:31pm OSITO YOUNG DO Recent Diagnosis Diabetes mellitus Osteomyelitis
[2016-05-18] MEDS: cefTRIAXone 1 GM/NS 50 ML IVPB IV SCH ×2 (08:50)
[2016-05-18 08:57] VITALS: BP 136/79
[2016-05-18] MEDS: NORMAL SALINE IV SCH (09:16)
[2016-05-18] MEDS: DAPTOMYCIN IV SCH (09:16)
[2016-05-18 09:53] VITALS: BP 136/79
[2016-05-19 08:10] VITALS: BP 146/72
[2016-05-19] MEDS: cefTRIAXone 1 GM/NS 50 ML IVPB IV SCH ×4 (08:15→09:03)
[2016-05-19] MEDS: NORMAL SALINE IV SCH (08:53)
[2016-05-19] MEDS: DAPTOMYCIN IV SCH (08:53)
[2016-05-20] MEDS: cefTRIAXone 1 GM/NS 50 ML IVPB IV SCH ×2 (08:10)
[2016-05-20 08:23] VITALS: BP 127/78
[2016-05-20] MEDS: DAPTOMYCIN IV SCH (08:35)
[2016-05-20] MEDS: NORMAL SALINE IV SCH (08:35)
[2016-05-20 09:13] VITALS: BP 127/78
[2016-05-21] MEDS: cefTRIAXone 1 GM/NS 50 ML IVPB IV SCH ×2 (08:45)
[2016-05-21] MEDS: DAPTOMYCIN IV SCH (09:20)
[2016-05-21] MEDS: NORMAL SALINE IV SCH (09:20)
[2016-05-21 09:52] VITALS: BP 143/74
[2016-05-22 08:05] VITALS: BP 127/72
[2016-05-22] MEDS: cefTRIAXone 1 GM/NS 50 ML IVPB IV SCH ×2 (08:59)
[2016-05-22] MEDS: DAPTOMYCIN IV SCH (08:59)
[2016-05-22] MEDS: NORMAL SALINE IV SCH (08:59)
[2016-05-23] MEDS: cefTRIAXone 1 GM/NS 50 ML IVPB IV SCH ×2 (08:10)
[2016-05-23] MEDS: NORMAL SALINE IV SCH (08:45)
[2016-05-23] MEDS: DAPTOMYCIN IV SCH (08:45)
[2016-05-23 09:27] VITALS: BP 130/62
[2016-05-24] MEDS: CATHETER FLUSH 10 ML SYR IV PRN ×2 (08:43→09:15)
[2016-05-24] MEDS: cefTRIAXone 1 GM/NS 50 ML IVPB IV SCH ×2 (08:43)
[2016-05-24 09:14] LABS: ANION GAP 12 MMOL/L (5-14); BLOOD UREA NITROGEN 29 MG/DL (7-18); BUN/CREATININE RATIO 27; CALCIUM 9.2 MG/DL (8.5-10.1); CARBON DIOXIDE 20 MMOL/L (21-32); CHLORIDE 100 MMOL/L (98-107); CREATINE KINASE 77 U/L (30-200); CREATININE SERUM 1.06 MG/DL (0.60-1.30); GFR ESTIMATED > 60; POTASSIUM 5.4 MMOL/L (3.6-5.0); SODIUM 132 MMOL/L (135-145)
[2016-05-24] MEDS: DAPTOMYCIN IV SCH (09:14)
[2016-05-24] MEDS: NORMAL SALINE IV SCH (09:14)
[2016-05-24 09:34] LABS: GLUCOSE 429 MG/DL (70-105)
[2016-05-24 11:19] VITALS: BP 155/69
[2016-05-25] MEDS: cefTRIAXone 1 GM/NS 50 ML IVPB IV SCH ×2 (07:50)
[2016-05-25] MEDS: CATHETER FLUSH 10 ML SYR IV PRN ×3 (07:50→08:45)
[2016-05-25] MEDS: DAPTOMYCIN IV SCH (08:15)
[2016-05-25] MEDS: NORMAL SALINE IV SCH (08:15)
[2016-05-25 09:00] VITALS: BP 117/72
[2016-05-26] MEDS: cefTRIAXone 1 GM/NS 50 ML IVPB IV SCH ×2 (09:12)
[2016-05-26 09:15] VITALS: BP 134/68
[2016-05-26] MEDS: DAPTOMYCIN IV SCH (09:47)
[2016-05-26] MEDS: NORMAL SALINE IV SCH (09:47)
[2016-05-27 08:00] VITALS: BP 118/57
[2016-05-27] MEDS: CATHETER FLUSH 10 ML SYR IV PRN ×2 (08:21→09:25)
[2016-05-27] MEDS: cefTRIAXone 1 GM/NS 50 ML IVPB IV SCH ×2 (08:25)
[2016-05-27] MEDS: DAPTOMYCIN IV SCH (08:54)
[2016-05-27] MEDS: NORMAL SALINE IV SCH (08:54)
[2016-05-28] MEDS: CATHETER FLUSH 10 ML SYR IV PRN ×2 (08:05→09:10)
[2016-05-28] MEDS: cefTRIAXone 1 GM/NS 50 ML IVPB IV SCH ×2 (08:05)
[2016-05-28] MEDS: DAPTOMYCIN IV SCH (08:33)
[2016-05-28] MEDS: NORMAL SALINE IV SCH (08:33)
[2016-05-28 09:07] VITALS: BP 138/66
[2016-05-29] MEDS: cefTRIAXone 1 GM/NS 50 ML IVPB IV SCH ×2 (08:09)
[2016-05-29] MEDS: CATHETER FLUSH 10 ML SYR IV PRN ×2 (08:09→09:14)
[2016-05-29 08:11] VITALS: BP 139/70
[2016-05-29] MEDS: NORMAL SALINE IV SCH (08:40)
[2016-05-29] MEDS: DAPTOMYCIN IV SCH (08:40)
[2016-05-30] MEDS: CATHETER FLUSH 10 ML SYR IV PRN ×3 (08:09→09:15)
[2016-05-30] MEDS: cefTRIAXone 1 GM/NS 50 ML IVPB IV SCH ×2 (08:10)
[2016-05-30] MEDS: NORMAL SALINE IV SCH (08:40)
[2016-05-30] MEDS: DAPTOMYCIN IV SCH (08:40)
[2016-05-30 08:43] VITALS: BP 131/71
[2016-05-31] MEDS: cefTRIAXone 1 GM/NS 50 ML IVPB IV SCH ×2 (08:57)
[2016-05-31] MEDS: CATHETER FLUSH 10 ML SYR IV PRN ×3 (08:57→10:10)
[2016-05-31 09:11] VITALS: BP 128/78
[2016-05-31 09:26] LABS: ANION GAP 6 MMOL/L (5-14); BLOOD UREA NITROGEN 21 MG/DL (7-18); BUN/CREATININE RATIO 24; CALCIUM 8.8 MG/DL (8.5-10.1); CARBON DIOXIDE 23 MMOL/L (21-32); CHLORIDE 105 MMOL/L (98-107); CREATINE KINASE 79 U/L (30-200); CREATININE SERUM 0.86 MG/DL (0.60-1.30); GFR ESTIMATED > 60; GLUCOSE 239 MG/DL (70-105); POTASSIUM 4.4 MMOL/L (3.6-5.0); SODIUM 134 MMOL/L (135-145)
[2016-05-31] MEDS: DAPTOMYCIN IV SCH (09:31)
[2016-05-31] MEDS: NORMAL SALINE IV SCH (09:31)
[2016-06-01] MEDS: CATHETER FLUSH 10 ML SYR IV PRN ×2 (08:30→09:30)
[2016-06-01 08:32] VITALS: BP 142/78
[2016-06-01] MEDS: cefTRIAXone 1 GM/NS 50 ML IVPB IV SCH ×2 (08:32)
[2016-06-01] MEDS: NORMAL SALINE IV SCH (09:00)
[2016-06-01] MEDS: DAPTOMYCIN IV SCH (09:00)
[2016-06-01 09:30] VITALS: BP 142/78
[2016-06-02] MEDS: cefTRIAXone 1 GM/NS 50 ML IVPB IV SCH ×2 (07:56)
[2016-06-02] MEDS: CATHETER FLUSH 10 ML SYR IV PRN ×3 (07:56→09:00)
[2016-06-02] MEDS: DAPTOMYCIN IV SCH (08:27)
[2016-06-02] MEDS: NORMAL SALINE IV SCH (08:27)
[2016-06-02 08:36] VITALS: BP 142/78
[2016-06-03] MEDS: cefTRIAXone 1 GM/NS 50 ML IVPB IV SCH ×2 (08:42)
[2016-06-03] MEDS: DAPTOMYCIN IV SCH (09:13)
[2016-06-03] MEDS: CATHETER FLUSH 10 ML SYR IV PRN ×2 (09:13→09:40)
[2016-06-03] MEDS: NORMAL SALINE IV SCH (09:13)
[2016-06-03 10:43] VITALS: BP 127/70
[2016-06-04 08:30] VITALS: BP 116/69
[2016-06-04] MEDS: cefTRIAXone 1 GM/NS 50 ML IVPB IV SCH ×2 (08:40)
[2016-06-04] MEDS: NORMAL SALINE IV SCH (09:08)
[2016-06-04] MEDS: DAPTOMYCIN IV SCH (09:08)
[2016-06-05 08:35] VITALS: BP 138/70
[2016-06-05] MEDS: cefTRIAXone 1 GM/NS 50 ML IVPB IV SCH ×2 (08:45)
[2016-06-05] MEDS: DAPTOMYCIN IV SCH (09:27)
[2016-06-05] MEDS: NORMAL SALINE IV SCH (09:27)
[2016-06-06 08:35] VITALS: BP 154/76
[2016-06-06] MEDS: cefTRIAXone 1 GM/NS 50 ML IVPB IV SCH ×2 (08:45)
[2016-06-06] MEDS: CATHETER FLUSH 10 ML SYR IV PRN ×3 (08:45→09:52)
[2016-06-06] MEDS: NORMAL SALINE IV SCH (09:14)
[2016-06-06] MEDS: DAPTOMYCIN IV SCH (09:14)
[2016-06-07 08:05] VITALS: BP 124/91
[2016-06-07] MEDS: cefTRIAXone 1 GM/NS 50 ML IVPB IV SCH ×2 (08:08)
[2016-06-07] MEDS: DAPTOMYCIN IV SCH (08:40)
[2016-06-07] MEDS: NORMAL SALINE IV SCH (08:40)
[2016-06-07] MEDS: CATHETER FLUSH 10 ML SYR IV PRN ×2 (08:40→08:49)
[2016-06-07 08:59] LABS: ANION GAP 8 MMOL/L (5-14); BLOOD UREA NITROGEN 24 MG/DL (7-18); BUN/CREATININE RATIO 29; CALCIUM 8.8 MG/DL (8.5-10.1); CARBON DIOXIDE 24 MMOL/L (21-32); CHLORIDE 105 MMOL/L (98-107); CREATINE KINASE 236 U/L (30-200); CREATININE SERUM 0.83 MG/DL (0.60-1.30); GFR ESTIMATED > 60; GLUCOSE 98 MG/DL (70-105); POTASSIUM 4.2 MMOL/L (3.6-5.0); SODIUM 137 MMOL/L (135-145)
[2016-06-08] MEDS: CATHETER FLUSH 10 ML SYR IV PRN ×3 (08:34→09:35)
[2016-06-08] MEDS: cefTRIAXone 1 GM/NS 50 ML IVPB IV SCH ×2 (08:35)
[2016-06-08] MEDS: NORMAL SALINE IV SCH (09:05)
[2016-06-08] MEDS: DAPTOMYCIN IV SCH (09:05)
[2016-06-08 10:00] VITALS: BP 136/88
[2016-06-09] MEDS: cefTRIAXone 1 GM/NS 50 ML IVPB IV SCH ×2 (09:44)
[2016-06-09] MEDS: CATHETER FLUSH 10 ML SYR IV PRN ×3 (09:44→10:45)
[2016-06-09] MEDS: NORMAL SALINE IV SCH (10:12)
[2016-06-09] MEDS: DAPTOMYCIN IV SCH (10:12)
[2016-06-09 11:06] VITALS: BP 115/69
[2016-06-10 11:02] VITALS: BP 137/82
[2016-06-10] MEDS: cefTRIAXone 1 GM/NS 50 ML IVPB IV SCH ×2 (11:02)
[2016-06-10] MEDS: CATHETER FLUSH 10 ML SYR IV PRN ×2 (11:02→12:02)
[2016-06-10] MEDS: NORMAL SALINE IV SCH (11:30)
[2016-06-10] MEDS: DAPTOMYCIN IV SCH (11:30)
[2016-06-10 12:05] VITALS: BP 137/82
[2016-06-11] MEDS: cefTRIAXone 1 GM/NS 50 ML IVPB IV SCH ×2 (09:15)
[2016-06-11 09:30] VITALS: BP 137/79
[2016-06-11] MEDS: DAPTOMYCIN IV SCH (09:45)
[2016-06-11] MEDS: NORMAL SALINE IV SCH (09:45)
[2016-06-13] MEDS: CATHETER FLUSH 10 ML SYR IV PRN (14:08)
[2016-06-13 14:10] VITALS: BP 127/78
[2016-06-13] MEDS: cefTRIAXone 1 GM/NS 50 ML IVPB IV SCH ×2 (14:10)
[2016-06-13] MEDS: DAPTOMYCIN IV SCH (14:33)
[2016-06-13] MEDS: NORMAL SALINE IV SCH (14:33)
[2016-06-16] MEDS: cefTRIAXone 1 GM/NS 50 ML IVPB IV SCH ×2 (10:00)
[2016-06-16] MEDS: DAPTOMYCIN IV SCH (10:32)
[2016-06-16] MEDS: NORMAL SALINE IV SCH (10:32)
[2016-06-17] MEDS: cefTRIAXone 1 GM/NS 50 ML IVPB IV SCH ×2 (09:34)
[2016-06-17] MEDS: CATHETER FLUSH 10 ML SYR IV PRN (10:00)
[2016-06-17] MEDS: NORMAL SALINE IV SCH (10:00)
[2016-06-17] MEDS: DAPTOMYCIN IV SCH (10:00)
[2016-06-17 11:30] VITALS: BP 138/87
[2016-06-18] MEDS: cefTRIAXone 1 GM/NS 50 ML IVPB IV SCH ×2 (09:00)
[2016-06-18] MEDS: CATHETER FLUSH 10 ML SYR IV PRN ×2 (09:01→09:59)
[2016-06-18] MEDS: NORMAL SALINE IV SCH (09:59)
[2016-06-18] MEDS: DAPTOMYCIN IV SCH (09:59)
[2016-06-18 10:20] VITALS: BP 145/85
[2016-06-19 09:05] VITALS: BP 164/92
[2016-06-19] MEDS: CATHETER FLUSH 10 ML SYR IV PRN ×3 (09:34→10:32)
[2016-06-19] MEDS: cefTRIAXone 1 GM/NS 50 ML IVPB IV SCH ×2 (09:38)
[2016-06-19] MEDS: DAPTOMYCIN IV SCH (10:05)
[2016-06-19] MEDS: NORMAL SALINE IV SCH (10:05)
[2016-06-20] MEDS: CATHETER FLUSH 10 ML SYR IV PRN ×2 (08:20→09:20)
[2016-06-20] MEDS: cefTRIAXone 1 GM/NS 50 ML IVPB IV SCH ×2 (08:21)
[2016-06-20 08:42] VITALS: BP 153/88
[2016-06-20] MEDS: NORMAL SALINE IV SCH (08:50)
[2016-06-20] MEDS: DAPTOMYCIN IV SCH (08:50)
[2016-06-21] MEDS: CATHETER FLUSH 10 ML SYR IV PRN ×2 (08:30→09:30)
[2016-06-21] MEDS: cefTRIAXone 1 GM/NS 50 ML IVPB IV SCH ×2 (08:35)
[2016-06-21] MEDS: NORMAL SALINE IV SCH (08:36)
[2016-06-21] MEDS: DAPTOMYCIN IV SCH (08:36)
[2016-06-21 09:06] LABS: ANION GAP 11 MMOL/L (5-14); BLOOD UREA NITROGEN 27 MG/DL (7-18); BUN/CREATININE RATIO 26; CARBON DIOXIDE 26 MMOL/L (21-32); CHLORIDE 101 MMOL/L (98-107); CREATINE KINASE 93 U/L (30-200); CREATININE SERUM 1.04 MG/DL (0.60-1.30); GFR ESTIMATED > 60; GLUCOSE 213 MG/DL (70-105); POTASSIUM 3.9 MMOL/L (3.6-5.0); SODIUM 138 MMOL/L (135-145)
[2016-06-21 09:32] VITALS: BP 158/84
[2016-06-22] MEDS: cefTRIAXone 1 GM/NS 50 ML IVPB IV SCH ×2 (08:30)
[2016-06-22] MEDS: NORMAL SALINE IV SCH (09:00)
[2016-06-22] MEDS: DAPTOMYCIN IV SCH (09:00)
[2016-06-22 09:30] VITALS: BP 151/85
[2016-06-23] MEDS: CATHETER FLUSH 10 ML SYR IV PRN ×2 (09:45→10:56)
[2016-06-23] MEDS: DAPTOMYCIN IV SCH (10:22)
[2016-06-23] MEDS: NORMAL SALINE IV SCH (10:22)
[2016-06-23 11:05] VITALS: BP 151/90
[2016-06-24] MEDS: CATHETER FLUSH 10 ML SYR IV PRN ×2 (09:48→10:45)
[2016-06-24] MEDS: DAPTOMYCIN IV SCH (10:17)
[2016-06-24] MEDS: NORMAL SALINE IV SCH (10:17)
[2016-06-24 10:45] VITALS: BP 152/77
[2016-06-25] MEDS: CATHETER FLUSH 10 ML SYR IV PRN ×2 (08:44→09:45)
[2016-06-25 09:13] VITALS: BP 138/68
[2016-06-25] MEDS: NORMAL SALINE IV SCH (09:13)
[2016-06-25] MEDS: DAPTOMYCIN IV SCH (09:13)
[2016-06-26 08:40] VITALS: BP 118/71
[2016-06-26] MEDS: cefTRIAXone 1 GM/NS 50 ML IVPB IV SCH ×2 (08:45)
[2016-06-26] MEDS: cefTRIAXone 1 GM (ROCEPHIN) VIAL ONE ×2 (08:56→09:27)
[2016-06-26] MEDS: NORMAL SALINE IV SCH (09:26)
[2016-06-26] MEDS: DAPTOMYCIN IV SCH (09:26)
[2016-06-27] MEDS: CATHETER FLUSH 10 ML SYR IV PRN (08:36)
[2016-06-27] MEDS: DAPTOMYCIN IV SCH (09:22)
[2016-06-27] MEDS: NORMAL SALINE IV SCH (09:22)
[2016-06-27 09:50] VITALS: BP 109/63
[2016-06-28] MEDS: CATHETER FLUSH 10 ML SYR IV PRN ×2 (08:30→09:33)
[2016-06-28 08:32] VITALS: BP 133/66
[2016-06-28] MEDS: cefTRIAXone 1 GM/NS 50 ML IVPB IV SCH ×2 (08:32)
[2016-06-28] MEDS: DAPTOMYCIN IV SCH (08:58)
[2016-06-28] MEDS: NORMAL SALINE IV SCH (08:58)
[2016-06-28 08:59] LABS: ANION GAP 10 MMOL/L (5-14); BLOOD UREA NITROGEN 28 MG/DL (7-18); BUN/CREATININE RATIO 25; CALCIUM 9.4 MG/DL (8.5-10.1); CARBON DIOXIDE 25 MMOL/L (21-32); CHLORIDE 100 MMOL/L (98-107); CREATINE KINASE 75 U/L (30-200); CREATININE SERUM 1.12 MG/DL (0.60-1.30); GFR ESTIMATED > 60; GLUCOSE 173 MG/DL (70-105); POTASSIUM 4.4 MMOL/L (3.6-5.0); SODIUM 135 MMOL/L (135-145)
[2016-06-29] MEDS: CATHETER FLUSH 10 ML SYR IV PRN ×3 (10:44→11:50)
[2016-06-29] MEDS: cefTRIAXone 1 GM/NS 50 ML IVPB IV SCH ×2 (10:45)
[2016-06-29] MEDS: NORMAL SALINE IV SCH (11:15)
[2016-06-29] MEDS: DAPTOMYCIN IV SCH (11:15)
[2016-06-29 11:57] VITALS: BP 157/92
[2016-06-30] MEDS: cefTRIAXone 1 GM/NS 50 ML IVPB IV SCH ×2 (08:55)
[2016-06-30] MEDS: CATHETER FLUSH 10 ML SYR IV PRN (08:56)
[2016-06-30] MEDS: NORMAL SALINE IV SCH (09:24)
[2016-06-30] MEDS: DAPTOMYCIN IV SCH (09:24)
[2016-06-30 10:00] VITALS: BP 125/92
[2016-07-01] MEDS: CATHETER FLUSH 10 ML SYR IV PRN (11:10)
[2016-07-01] MEDS: cefTRIAXone 1 GM/NS 50 ML IVPB IV SCH ×2 (11:10)
[2016-07-01] MEDS: DAPTOMYCIN IV SCH (11:40)
[2016-07-01] MEDS: NORMAL SALINE IV SCH (11:40)
[2016-07-01 12:14] VITALS: BP 137/70
[2016-07-02] MEDS: CATHETER FLUSH 10 ML SYR IV PRN ×2 (10:57→11:56)
[2016-07-02] MEDS: DAPTOMYCIN IV SCH (11:32)
[2016-07-02] MEDS: NORMAL SALINE IV SCH (11:32)
[2016-07-02 11:34] VITALS: BP 115/50
[2016-07-03 15:24] VITALS: BP 109/65
[2016-07-03] MEDS: cefTRIAXone 1 GM/NS 50 ML IVPB IV SCH ×2 (15:25)
[2016-07-03] MEDS: CATHETER FLUSH 10 ML SYR IV PRN ×3 (15:36→16:30)
[2016-07-03] MEDS: NORMAL SALINE IV SCH (16:02)
[2016-07-03] MEDS: DAPTOMYCIN IV SCH (16:02)
[2016-07-04 09:50] VITALS: BP 99/47
[2016-07-04] MEDS: CATHETER FLUSH 10 ML SYR IV PRN ×3 (10:04→11:10)
[2016-07-04] MEDS: cefTRIAXone 1 GM/NS 50 ML IVPB IV SCH ×2 (10:05)
[2016-07-04] MEDS: NORMAL SALINE IV SCH (10:33)
[2016-07-04] MEDS: DAPTOMYCIN IV SCH (10:33)
[2016-07-05] MEDS: CATHETER FLUSH 10 ML SYR IV PRN ×2 (11:09→12:15)
[2016-07-05 11:36] LABS: CALCIUM 9.1 MG/DL (8.5-10.1); CREATININE SERUM 1.4 MG/DL (0.60-1.30); POTASSIUM 4.2 MMOL/L (3.6-5.0)
[2016-07-05] MEDS: DAPTOMYCIN IV SCH (11:43)
[2016-07-05] MEDS: NORMAL SALINE IV SCH (11:43)
[2016-07-05 12:16] VITALS: BP 106/67
[2016-07-06 12:11] VITALS: BP 137/76
[2016-07-07 09:00] VITALS: BP 138/76
[2016-07-07] MEDS: cefTRIAXone 1 GM/NS 50 ML IVPB IV SCH ×2 (09:10)
[2016-07-07] MEDS: CATHETER FLUSH 10 ML SYR IV PRN ×2 (09:10→10:15)
[2016-07-07] MEDS: NORMAL SALINE IV SCH (09:45)
[2016-07-07] MEDS: DAPTOMYCIN IV SCH (09:45)
[2016-07-08 09:00] VITALS: BP 163/77
[2016-07-08] MEDS: CATHETER FLUSH 10 ML SYR IV PRN ×2 (09:05→10:12)
[2016-07-08] MEDS: cefTRIAXone 1 GM/NS 50 ML IVPB IV SCH ×2 (09:05)
[2016-07-08] MEDS: DAPTOMYCIN IV SCH (09:40)
[2016-07-08] MEDS: NORMAL SALINE IV SCH (09:40)
[2016-07-09] MEDS: cefTRIAXone 1 GM/NS 50 ML IVPB IV SCH ×2 (10:11)
[2016-07-09] MEDS: CATHETER FLUSH 10 ML SYR IV PRN ×2 (10:12→11:10)
[2016-07-09 10:32] VITALS: BP 138/85
[2016-07-09] MEDS: NORMAL SALINE IV SCH (10:38)
[2016-07-09] MEDS: DAPTOMYCIN IV SCH (10:38)
[2016-07-10] MEDS: cefTRIAXone 1 GM/NS 50 ML IVPB IV SCH ×2 (10:14)
[2016-07-10] MEDS: NORMAL SALINE IV SCH (10:44)
[2016-07-10] MEDS: DAPTOMYCIN IV SCH (10:44)
[2016-07-10 10:45] VITALS: BP 135/86
[2016-07-10 11:19] VITALS: BP 135/86
[2016-07-11 10:20] VITALS: BP 132/88
[2016-07-11] MEDS: CATHETER FLUSH 10 ML SYR IV PRN ×3 (10:30→11:37)
[2016-07-11] MEDS: cefTRIAXone 1 GM/NS 50 ML IVPB IV SCH ×2 (10:33)
[2016-07-11] MEDS: NORMAL SALINE IV SCH (11:03)
[2016-07-11] MEDS: DAPTOMYCIN IV SCH (11:03)
[2016-07-12] MEDS: cefTRIAXone 1 GM/NS 50 ML IVPB IV SCH ×2 (10:42)
[2016-07-12] MEDS: DAPTOMYCIN IV SCH (11:15)
[2016-07-12] MEDS: NORMAL SALINE IV SCH (11:15)
[2016-07-12 11:36] LABS: ANION GAP 17 MMOL/L (5-14); BLOOD UREA NITROGEN 38 MG/DL (7-18); BUN/CREATININE RATIO 33; CALCIUM 7.6 MG/DL (8.5-10.1); CARBON DIOXIDE 22 MMOL/L (21-32); CHLORIDE 107 MMOL/L (98-107); CREATINE KINASE 57 U/L (30-200); CREATININE SERUM 1.14 MG/DL (0.60-1.30); GFR ESTIMATED > 60; GLUCOSE 175 MG/DL (70-105); POTASSIUM 3.7 MMOL/L (3.6-5.0); SODIUM 146 MMOL/L (135-145)
[2016-07-12 11:53] VITALS: BP 121/70
[~2016-07-13] VITALS: Ht 167.6 cm; Wt 104.3 kg
[~2016-07-13 12:10] MED LIST changes: +NORMAL SALINE (BAXTER MINI) 50 ML IV ONE; +cefTRIAXone 1 GM (ROCEPHIN) VIAL ONE
[2016-07-13] MEDS: cefTRIAXone 1 GM/NS 50 ML IVPB IV SCH ×2 (12:17)
[2016-07-13] MEDS: NORMAL SALINE IV SCH (12:47)
[2016-07-13] MEDS: DAPTOMYCIN IV SCH (12:47)
[2016-07-13 13:51] VITALS: BP 131/71
[2016-07-16] MEDS ORDERED: MEROPENEM 500 MG VIAL (MERREM) IV ONE (07:39)
[2016-07-18 10:12] VITALS: BP 153/84
== END 2016-08-16 | disposition home or self-care (01) ==
LOC: SDC 12:10
PROVIDERS: ATTEND Internal Medicine
DX: E11.621 Type 2 diabetes mellitus with foot ulcer (principal); E11.65 Type 2 diabetes mellitus with hyperglycemia; L97.524 Non-pressure chronic ulcer of other part of left foot with necrosis of bone; M86.272 Subacute osteomyelitis, left ankle and foot
CPT/HCPCS: 36415; 36592; 80048; 82550; 96365; 96366; 96367; 99211

== ENCOUNTER 2016-07-17 13:18 | Outpatient (RCR) | payer BC, MEDICAID ==
[~2016-07-17 13:18] MED LIST changes: -NORMAL SALINE (BAXTER MINI) 50 ML IV ONE; -cefTRIAXone 1 GM (ROCEPHIN) VIAL ONE
== END 2016-07-23 | disposition home or self-care (01) ==
LOC: WOUNDCARE 13:18
PROVIDERS: ATTEND Nurse Practitioner
DX: E11.621 Type 2 diabetes mellitus with foot ulcer (principal); L97.523 Non-pressure chronic ulcer of other part of left foot with necrosis of muscle
CPT/HCPCS: 11042; 11043; 36415; 36592; 80048; 82550; 82962; 87070; 87075; 87077; 87186; 87205; 96365; 96366; 96367; 99183; 99211; 99212; 99213

== ENCOUNTER 2016-08-21 14:55 | Outpatient (RCR) | payer BC, MEDICAID ==
--- OUTSIDE RECORDS SUMMARY | 2016-07-24 13:17 | XMS REPORT | Continuity of Care Document ---
Author Author [facility] Organization [facility] Address Unknown Phone Unavailable Care Team Providers Care Hat Lacer Name Role Phone OSITO YOUNG DO PCP Insurance Providers Payer Name Policy Number Subscriber Name Relationship [facility] [id number] Osito Ahn 17 Self / Same As Patient Advance Directives Directive Response Recorded Date/Time Advance Directives No 05/06/16 9:43pm Health Care Power of Heat Treat Technician No 05/06/16 9:43pm Organ Donor No 05/06/16 [...] - 99.5) 05/08/2016 12:00pm Temperature (Calculated Celsius) 36.87924 degrees C (36.4 - 37.5) 05/08/2016 12:00pm [...] 3.00 inches 05/06/2016 9:47pm Height (Calculated Centimeters) 190.571754 cm 05/06/2016 9:47pm Weight (Pounds) 237 pounds 05/06/2016 9:47pm Weight (Ounces) 0.0 oz 05/06/2016 9:47pm Weight (Calculated Grams) 594276.39 gm 05/06/2016 9:47pm Weight (Calculated Kilograms) 107.108400 kilograms 05/06/2016 9:47pm Calculated BMI 29.6 05/06/2016 [...] 04/24/2016 3:02pm 04/29/2016 10:02am STAPH, COAG NEG (CURB SETTER HELPER) 04/24/2016 3:02pm 04/29/2016 10:02am Anaerobic Culture Tissue, Toe No anaerobes isolated 05/01/2016 4:00pm 05/04 9:42am Wound Culture Tissue, Toe PROTEUS MIRABILIS 05/01/2016 4:00pm 05/03/2016 8: 57am STREP AGALACTIAE GROUP B 05/01/2016 4:00pm 05/03/2016 8:57am Pending Microbiology Results Procedure Source Collection Date/Time Procedures No known history of procedures. Encounters Encounter Location Arrival/Admit Date Discharge/Depart Date Attending Provider Discharged Inpatient [facility] 05/06/16 5:37pm 1:45pm LUIS CHUNG MD Registered Recurring [facility] 05/01/16 2:26pm AMANDA LOREDO APRN Registered Clinic [facility] 04/24/16 3:31pm OSITO YOUNG DO Recent Diagnosis Diabetes mellitus Osteomyelitis
== END 2016-09-04 16:00 | disposition home or self-care (01) ==
LOC: WOUNDCARE 14:55
PROVIDERS: ATTEND Nurse Practitioner
DX: E11.621 Type 2 diabetes mellitus with foot ulcer (principal); L97.523 Non-pressure chronic ulcer of other part of left foot with necrosis of muscle
CPT/HCPCS: 11042; 11044; 87070; 87075; 87077; 87106; 87186; 87205

== ENCOUNTER 2016-11-04 11:41 | Emergency (ER) | payer BC, MEDICAID ==
[~2016-11-04] VITALS: Ht 175.3 cm; Wt 105.7 kg
[2016-11-04] MEDS ORDERED: D5 NS 1000 ML IV SOLUTION 1,000 ML IV ONE (11:44)
--- NOTE | 2016-11-04 11:59 | ED General ---
General Chief Complaint: Glucose Problems Stated Complaint: HYPOGLYCEMIA History of Present Illness Time Seen by Provider: 11:45 Initial Comments Patient brought to emergency department after hypoglycemia and outpatient infusion clinic, for IV Vancomycin and wearing CAM boot for left foot. Patient reports he became dizzy, diaphoretic, and could tell his blood sugar was going down. He reports his insulin regimen was recently increased by Dr. Mehta to better control his diabetes, his initial glucose was 28 at approximately 11:30 he was given orange juice and Coke. Glucose was then measured at 54. He was more alert at that point and given jesse crackers and peanut butter. Glucose is currently 87, he is alert and oriented. He does report he ate breakfast this morning,took his evening insulin last night and gave his morning insulin today. Timing/Duration: 1/2 Hour Severity: Mild Modifying Factors: improves with Rest Associated Systoms: Denies Symptoms, No Chest Pain, No Diaphoresis, No Headaches, No Loss of Appetite, No Nausea/Vomiting, No Seizure, No Syncope, No Weakness Allergies and Home Medications Allergies Coded Allergies: doxycycline (Verified Allergy, Severe, RASH/SWELLING, 06/12/16) Home Medications Aspirin 81 Mg Tabec, 81 MG PO DAILY, (Reported) Ceftriaxone Na/Dextrose,Iso 1 Gm/50 Ml Froz.piggy, 1 GM IV DAILY for 56 Days Prescribed by: AMARILYS AMBROSIO on 05/17/16 1040 Daptomycin 500 Mg Vial, 600 MG IV DAILY, #56 Ref 0 Prescribed by: AMARILYS AMBROSIO on 05/17/16 1142 Furosemide 20 Mg Tablet, 20 MG PO DAILY, #30 Prescribed by: SOLEDAD MULLEN on 06/13/16 1118 Glimepiride 4 Mg Tablet, 8 MG PO DAILY, (Reported) TAKES 2 (4MG) TABLETS Insulin Glargine,Hum.rec.anlog 300 Unit/1 Ml Insuln.pen, 40 UNIT SQ HS for 30 Days Prescribed by: ALEX CHERRY on 06/13/16 1308 Insulin Glulisine 100 Unit/1 Ml Insuln.pen, 15 UNIT SQ AC for 30 Days Prescribed by: ALEX CHERRY on 06/13/16 1308 Lisinopril 10 Mg Tablet, 10 MG PO DAILY@1700, (Reported) Metformin HCl 1,000 Mg Tablet, 1,000 MG PO BIDPC, (Reported) [K Dur] , 10 PO DAILY, #60 Prescribed by: SOLEDAD MULLEN on 06/13/16 1118 Constitutional: no symptoms reported, see HPI EENTM: no symptoms reported, see HPI, No blurred vision, No double vision Respiratory: no symptoms reported, see HPI Cardiovascular: no symptoms reported, see HPI, No chest pain Gastrointestinal: no symptoms reported, see HPI Genitourinary: no symptoms reported, see HPI, No frequency, No incontinence, No nocturia Musculoskeletal: no symptoms reported, see HPI Skin: no symptoms reported, see HPI Psychiatric/Neurological: No Symptoms Reported, See HPI Hematologic/Lymphatic: No Symptoms Reported, See HPI Immunological/Allergic: no symptoms reported, see HPI All Other Systems Reviewed Negative Unless Noted: Yes Past Vrkdxyu-Proaug-Nflkca Hx Patient Social History Recent Hopitalizations: Yes (WOUND CARE, [facility]) Immunizations Up To Date Tetanus Booster (TDap): Less than 5yrs Date of Pneumonia Vaccine: Dec 17, 2012 Date of Influenza Vaccine: May 05, 2016 Seasonal Allergies Seasonal Allergies: No Surgeries HX Surgeries: Yes (SKIN GRAFT TO RIGHT LEG FOLLOWING RILEY YEARS AGO) Surgeries: CABG Respiratory Hx Respiratory Disorders: No Cardiovascular Hx Cardiac Disorders: Yes (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, partial amputation left foot) Cardiac Disorders: Coronary Artery Disease, High Cholesterol, Hypertension Neurological Hx Neurological Disorders: Yes Neurological Disorders: Neuropathy Reproductive System Hx Reproductive Disorders: No Sexually Transmitted Disease: No HIV/AIDS: No Genitourinary Hx Genitourinary Disorders: Yes Genitourinary Disorders: Kidney Stones Gastrointestinal Hx Gastrointestinal Disorders: No Musculoskeletal Hx Musculoskeletal Disorders: Yes (OSTEOMYELITIS LEFT GREAT TOE) Endocrine Hx Endocrine Disorders: Yes Endocrine Disorders: Diabetes, Insulin dep HEENT HX ENT Disorders: No Loss of Vision: Denies Hearing Impairment: Denies Cancer Hx Cancer: No Psychosocial Hx Psychiatric Problems: No Integumentary HX Skin/Integumentary Disorder: Yes Skin/Integumentary Disorders: Recent Skin Changes Blood Transfusions Hx Blood Disorders: No Adverse Reaction to a Blood Tr: No Reviewed Nursing Assessment Reviewed/Agree w Nursing PMH: Yes Family Medical History Significant Family History: Heart Disease, Hypertension Family Medial History: CONGESTIVE HEARTFAILURE 19 FATHER Physical Exam Vital Signs Vital Sign - Last 12Hours 11/04/16 11/04/16 11:45 14:02 Temp 95.6 Pulse 61 Resp 19 B/P (MAP) 147/74 Pulse Ox 100 O2 Delivery Room Air Capillary Refill : General Appearance: No Apparent Distress, WD/WN HEENT: PERRL/EOMI, TMs Normal, Normal ENT Inspection, Pharynx Normal Neck: Full Range of Motion, Normal Inspection, Non Tender, Supple Respiratory: Chest Non Tender, Lungs Clear, Normal Breath Sounds Gastrointestinal: Normal Bowel Sounds, No Organomegaly, No Pulsatile Mass, Non Tender, Soft Extremity: Normal Capillary Refill, Normal Inspection, Normal Range of Motion, Non Tender, No Calf Tenderness, No Pedal Edema Neurologic/Psychiatric: Alert, Oriented x3, No Motor/Sensory Deficits, Normal Mood/Affect Skin: Normal Color, Warm/Dry, No Diaphoresis, No Erythema, Other (CAM boot on left foot) Lymphatic: No Adenopathy Progress/Results/Core Measures Results/Orders Lab Results Laboratory Tests Test 11/04/16 11:46 11/04/16 12:15 11/04/16 12:16 11/04/16 13:05 Range/Units Glucometer 87 87 180 H 70-110 MG/DL White Blood Count 7.3 4.3-11.0 10^3/uL Red Blood Count 4.05 L 4.35-5.85 10^6/uL Hemoglobin 11.2 L 13.3-17.7 G/DL Hematocrit 35 L 40-54 % Mean Corpuscular Volume 86 80-99 FL Mean Corpuscular Hemoglobin 28 25-34 PG Mean Corpuscular Hemoglobin Concent 32 32-36 G/DL Red Cell Distribution Width 15.0 H 10.0-14.5 % Platelet Count 247 130-400 10^3/uL Mean Platelet Volume 10.0 7.4-10.4 FL Neutrophils (%) (Auto) 79 H 42-75 % Lymphocytes (%) (Auto) 11 L 12-44 % Monocytes (%) (Auto) 9 0-12 % Eosinophils (%) (Auto) 1 0-10 % Basophils (%) (Auto) 0 0-10 % Neutrophils # (Auto) 5.8 1.8-7.8 X 10^3 Lymphocytes # (Auto) 0.8 L 1.0-4.0 X 10^3 Monocytes # (Auto) 0.6 0.0-1.0 X 10^3 Eosinophils # (Auto) 0.1 0.0-0.3 10^3/uL Basophils # (Auto) 0.0 0.0-0.1 10^3/uL Sodium Level 141 135-145 MMOL/L Potassium Level 2.7 L 3.6-5.0 MMOL/L Chloride Level 96 L 98-107 MMOL/L Carbon Dioxide Level 29 21-32 MMOL/L Anion Gap 16 H 5-14 MMOL/L Blood Urea Nitrogen 26 H 7-18 MG/DL Creatinine 1.36 H 0.60-1.30 MG/DL Estimat Glomerular Filtration Rate 54 BUN/Creatinine Ratio 19 Glucose Level 85 70-105 MG/DL Calcium Level 8.8 8.5-10.1 MG/DL Total Bilirubin 0.5 0.1-1.0 MG/DL Aspartate Amino Transf (AST/SGOT) 32 5-34 U/L Alanine Aminotransferase (ALT/SGPT) 42 0-55 U/L Alkaline Phosphatase 85 40-136 U/L Total Protein 6.7 6.4-8.2 G/DL Albumin 3.8 3.2-4.5 G/DL Test 11/04/16 13:34 Range/Units Glucometer 229 H 70-110 MG/DL My Orders Orders - JOAQUIN GANNON General/Regular (11/04/16 Lunch) Cbc With Automated Diff (11/04/16 12:00) Comprehensive Metabolic Panel (11/04/16 12:00) Ua Culture If Indicated (11/04/16 12:00) Medications Given in ED Current Medications Medications Dose Ordered Sig/Jeri Route Start Time Stop Time Status Last Admin Dose Admin Dextrose/Sodium Chloride 1,000 ml @ ud STK-MED ONCE IV 11/04/16 11:44 11/04/16 11:49 DC 11/04/16 12:01 999 MLS/HR Vital Signs/I&O Vital Sign - Last 12Hours 11/04/16 11/04/16 11:45 14:02 Temp 95.6 96.0 Pulse 61 60 Resp 19 B/P (MAP) 147/74 Pulse Ox 100 O2 Delivery Room Air Progress Note : Time: 11:45 Progress Note Will continue to monitor the patient, he does report being hungry. Lunch ordered for him chicken breast and broccoli. Monitor glucose. 1220 patient alert and oriented conversing in room with no complaints at this time. Glucose per lab is 87. 1250 patient was able to eat entire lunch. No complaints at this time we'll recheck glucose and 20 minutes. 1310 Glucose 180 after eating, 1L D5NS infused per IV. Patient denies any complaints at this time. 1340 Glucose 229. Discussed with the patient and the importance of eating on a regular basis and taking his insulin as prescribed. He verbalizes understanding this. His mother is here and able to drive him home, he'll be coming back later for his evening dose of IV antibiotic. He understands the importance to follow- up with Dr. Mehta early this week for adjustments to his insulin regimen. Departure Impression Impression: Primary Impression: Hypoglycemia associated with diabetes Disposition: HOME, SELF-CARE Condition: Improved Departure-Patient Inst. Decision time for Depature: 13:00 Referrals: VITO MEHTA DO (PCP/Family) Primary Care Physician Patient Instructions: Low Blood Sugar, Adult (DC) Add. Discharge Instructions: Monitor blood sugar every 2-4 hours, more often as needed for symptoms. Continue to eat on a regularly scheduled basis (every 2-4 hours). Increase fluid intake of water. Follow up with Dr. Mehta early this week. Return to emergency Department if low blood glucose, new complaints or problems. All discharge instructions reviewed with patient and/or family. Voiced understanding. Copy Copies To 1: VITO MEHTA AMY ARNP November 04, 2016 11:59
[2016-11-04 12:25] LABS: BASOPHILS % (AUTO) 0 % (0-10); EOSINOPHILS # (AUTO) 0.1 10^3/uL (0.0-0.3); EOSINOPHILS % (AUTO) 1 % (0-10); LYMPHOCYTES # (AUTO) 0.8 X 10^3 (1.0-4.0); LYMPHOCYTES % (AUTO) 11 % (12-44); MEAN CORPUSCULAR HEMOGLOBIN 28 PG (25-34); MEAN CORPUSCULAR HGB CONC 32 G/DL (32-36); MEAN CORPUSCULAR VOLUME 86 FL (80-99); MONOCYTES # (AUTO) 0.6 X 10^3 (0.0-1.0); MONOCYTES % (AUTO) 9 % (0-12); NEUTROPHILS # (AUTO) 5.8 X 10^3 (1.8-7.8); NEUTROPHILS % (AUTO) 79 % (42-75); PLATELET COUNT 247 10^3/uL (130-400); RED BLOOD COUNT 4.05 10^6/uL (4.35-5.85); WHITE BLOOD COUNT 7.3 10^3/uL (4.3-11.0)
[2016-11-04 13:01] LABS: ALBUMIN 3.8 G/DL (3.2-4.5); BILIRUBIN,TOTAL 0.5 MG/DL (0.1-1.0); CALCIUM 8.8 MG/DL (8.5-10.1); CREATININE SERUM 1.36 MG/DL (0.60-1.30); POTASSIUM 2.7 MMOL/L (3.6-5.0); TOTAL PROTEIN 6.7 G/DL (6.4-8.2)
[2016-11-04 14:02] VITALS: BP 132/79
== END 2016-11-04 13:05 | disposition home or self-care (01) ==
LOC: EDUNIT# 11:41 → ER 11:42
DX: E11.649 Type 2 diabetes mellitus with hypoglycemia without coma (principal); I10 Essential (primary) hypertension; I25.10 Atherosclerotic heart disease of native coronary artery without angina pectoris; Z79.84 Long term (current) use of oral hypoglycemic drugs; Z79.4 Long term (current) use of insulin; Z79.82 Long term (current) use of aspirin; Z79.899 Other long term (current) drug therapy; Z95.1 Presence of aortocoronary bypass graft
CPT/HCPCS: 36415; 80053; 82962; 85025; 96360; 99281

== ENCOUNTER 2016-11-06 08:12 | Outpatient (RCR) | payer BC, MEDICAID ==
[2016-10-25 20:44] LABS: ANION GAP 10 MMOL/L (5-14); BLOOD UREA NITROGEN 26 MG/DL (7-18); BUN/CREATININE RATIO 23; CALCIUM 9.4 MG/DL (8.5-10.1); CARBON DIOXIDE 25 MMOL/L (21-32); CHLORIDE 98 MMOL/L (98-107); CREATININE SERUM 1.13 MG/DL (0.60-1.30); GFR ESTIMATED > 60; GLUCOSE 283 MG/DL (70-105); POTASSIUM 4.5 MMOL/L (3.6-5.0); SODIUM 133 MMOL/L (135-145)
[2016-10-25 23:06] VITALS: BP 133/72
[2016-10-26] MEDS: VANCOMYCIN 1,750 MG/NS 500 ML IVPB IV SCH ×4 (07:45→19:43)
[2016-10-26] MEDS: CATHETER FLUSH 10 ML SYR IV PRN ×2 (08:42→09:46)
[2016-10-26 09:52] VITALS: BP 139/66
[2016-10-26 23:27] VITALS: BP 154/70
[2016-10-27] MEDS: CATHETER FLUSH 10 ML SYR IV PRN ×2 (09:21→11:25)
[2016-10-27] MEDS: VANCOMYCIN 1,750 MG/NS 500 ML IVPB IV SCH ×4 (09:21→20:58)
[2016-10-27 09:33] VITALS: BP 135/60
[2016-10-28 00:04] VITALS: BP 146/71
[2016-10-28] MEDS: VANCOMYCIN 1,750 MG/NS 500 ML IVPB IV SCH ×4 (10:16→19:46)
[2016-10-28] MEDS: CATHETER FLUSH 10 ML SYR IV PRN ×2 (10:16→12:19)
[2016-10-28 11:05] VITALS: BP 146/80
[2016-10-28 22:57] VITALS: BP 137/66
[2016-10-29] MEDS: VANCOMYCIN 1,750 MG/NS 500 ML IVPB IV SCH ×2 (08:52)
[2016-10-29] MEDS: CATHETER FLUSH 10 ML SYR IV PRN (08:52)
[2016-10-29 09:15] VITALS: BP 161/78
--- NOTE | 2016-10-29 10:42 | Diagnostic Imaging Report ---
Indication: PICC line placement. Discussion: Single portable upright view of the chest was obtained, comparison 07/10/2016. Cardiomegaly is stable. No focal consolidation, pleural fluid, or pneumothorax. Median sternotomy is stable. Left upper extremity PICC line with tip in the distal SVC. Impression: 1. Cardiomegaly without failure, stable. 2. Left upper extremity PICC line with tip in the distal SVC. Dictated by: Dictated on workstation # [id number]
[2016-10-30 10:35] VITALS: BP 152/73
[2016-10-30] MEDS: CATHETER FLUSH 10 ML SYR IV PRN ×3 (10:50→19:51)
[2016-10-30] MEDS: VANCOMYCIN INJECTION 1,500 MG in NS IV 500 ML 500 ML IV SCH ×2 (10:51→19:51)
[2016-10-30 19:48] VITALS: BP 143/82
[2016-10-30 21:50] VITALS: BP 143/82
[2016-10-31] MEDS: CATHETER FLUSH 10 ML SYR IV PRN ×3 (12:08→22:13)
[2016-10-31] MEDS: VANCOMYCIN INJECTION 1,500 MG in NS IV 500 ML 500 ML IV SCH ×2 (12:09→22:12)
[2016-10-31 14:10] VITALS: BP 148/71
[2016-11-01 00:52] VITALS: BP 138/63
[2016-11-01] MEDS: VANCOMYCIN INJECTION 1,500 MG in NS IV 500 ML 500 ML IV SCH (16:45)
[2016-11-01 18:52] VITALS: BP 122/68
[2016-11-02] MEDS: VANCOMYCIN INJECTION 1,500 MG in NS IV 500 ML 500 ML IV SCH ×2 (09:35→20:50)
[2016-11-02] MEDS: CATHETER FLUSH 10 ML SYR IV PRN (11:35)
[2016-11-02 11:38] VITALS: BP 146/70
[2016-11-02 20:50] VITALS: BP 147/75
[2016-11-02 21:06] LABS: BASOPHILS % (AUTO) 1 % (0-10); EOSINOPHILS # (AUTO) 0.1 10^3/uL (0.0-0.3); EOSINOPHILS % (AUTO) 1 % (0-10); LYMPHOCYTES # (AUTO) 1.1 X 10^3 (1.0-4.0); LYMPHOCYTES % (AUTO) 16 % (12-44); MEAN CORPUSCULAR HEMOGLOBIN 28 PG (25-34); MEAN CORPUSCULAR HGB CONC 33 G/DL (32-36); MEAN CORPUSCULAR VOLUME 85 FL (80-99); MEAN PLATELET VOLUME 9.9 FL (7.4-10.4); MONOCYTES # (AUTO) 0.7 X 10^3 (0.0-1.0); MONOCYTES % (AUTO) 10 % (0-12); NEUTROPHILS # (AUTO) 5.1 X 10^3 (1.8-7.8); NEUTROPHILS % (AUTO) 72 % (42-75); PLATELET COUNT 293 10^3/uL (130-400); RED BLOOD COUNT 3.88 10^6/uL (4.35-5.85); RED CELL DISTRIBUTION WIDTH 15.2 % (10.0-14.5); WHITE BLOOD COUNT 7.1 10^3/uL (4.3-11.0)
[2016-11-02 21:25] LABS: ALBUMIN 3.9 G/DL (3.2-4.5); CALCIUM 9.1 MG/DL (8.5-10.1); CREATININE SERUM 1.37 MG/DL (0.60-1.30); PHOSPHORUS 4.6 MG/DL (2.3-4.7); POTASSIUM 3.3 MMOL/L (3.6-5.0)
[2016-11-03 10:45] VITALS: BP 123/64
[2016-11-03] MEDS: CATHETER FLUSH 10 ML SYR IV PRN (11:08)
[2016-11-03] MEDS: VANCOMYCIN INJECTION 1,500 MG in NS IV 500 ML 500 ML IV SCH (11:10)
[2016-11-03 13:25] VITALS: BP 123/64
[2016-11-04 08:29] VITALS: BP 131/74
[2016-11-04] MEDS: CATHETER FLUSH 10 ML SYR IV PRN (08:42)
[2016-11-04] MEDS: VANCOMYCIN INJECTION 1,500 MG in NS IV 500 ML 500 ML IV SCH ×2 (08:43→20:22)
[2016-11-04 23:23] VITALS: BP 132/86
[2016-11-05 09:55] VITALS: BP 137/66
[~2016-11-06] VITALS: Ht 180.3 cm; Wt 106.6 kg
[~2016-11-06 08:12] MED LIST changes: +TROUGH ORDER-PHARMACY XX NR; +VANCOMYCIN 1,750 MG/NS 500 ML IVPB IV SCH
[2016-11-06 08:58] LABS: CALCIUM 9.2 MG/DL (8.5-10.1); CREATININE SERUM 1.46 MG/DL (0.60-1.30); POTASSIUM 3.9 MMOL/L (3.6-5.0)
[2016-11-06] MEDS: VANCOMYCIN INJECTION 1,500 MG in NS IV 500 ML 500 ML IV SCH (09:24)
[2016-11-06 14:22] VITALS: BP 137/70
== END 2017-01-23 | disposition home or self-care (01) ==
LOC: 4TH RCR 08:12
PROVIDERS: ATTEND Internal Medicine
DX: M86.9 Osteomyelitis, unspecified (principal); L03.116 Cellulitis of left lower limb; E11.610 Type 2 diabetes mellitus with diabetic neuropathic arthropathy; E11.65 Type 2 diabetes mellitus with hyperglycemia
CPT/HCPCS: 36415; 36569; 71010; 76937; 80048; 80069; 80202; 82962; 85025; 87070; 96365; 96366; 99211